=== PATIENT | female | born 1930 | race Caucasian/White ===

== ENCOUNTER 2017-06-22 11:11 | Outpatient (CLI) | payer MEDICARE | END 2017-06-22 11:12 | disposition home or self-care (01) | LOC: BICMAMMO 11:11 | PROVIDERS: ATTEND Internal Medicine | DX: Z12.31 Encounter for screening mammogram for malignant neoplasm of breast (principal) | CPT/HCPCS: 77063; 77067 ==

== ENCOUNTER 2017-07-11 15:48 | Emergency (ER) | payer MEDICARE, OTHER ==
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
--- NOTE | 2017-07-16 22:46 | EKG ---
Test Reason : Blood Pressure : / mmHG Vent. Rate : 084 BPM Atrial Rate : 084 BPM P-R Int : 174 ms QRS Dur : 076 ms QT Int : 368 ms P-R-T Axes : 045 -09 036 degrees QTc Int : 434 ms Normal sinus rhythm Nonspecific ST abnormality No STEMI Abnormal ECG Confirmed by KI YU, DEMETRIO ([id number]), editor department ROMA PENDLETON ([id number]) on 07/16/2017 10:46:23 PM Referred By: Confirmed By:DEMETRIO EMERSON MD
== END 2017-07-11 17:28 | disposition home or self-care (01) ==
LOC: ERS 15:48
DX: R07.89 Other chest pain (principal); I10 Essential (primary) hypertension; V43.52XA Car driver injured in collision with other type car in traffic accident, initial encounter
CPT/HCPCS: 71046; 93005

== ENCOUNTER 2017-08-18 08:26 | Day surgery (SDC) | payer MEDICARE ==
[2017-08-18] MEDS ORDERED: diphenhydrAMINE 25 MG CAP PO SCH (09:00)
[2017-08-18] MEDS ORDERED: Acetaminophen 500 MG TAB PO SCH (09:00)
[2017-08-18] MEDS ORDERED: Sodium Chloride 0.9% 30 ML ONE (09:03)
[2017-08-18 12:48] LABS: Hemoglobin 8.5 g/dL (12.0-16.0)
[2017-08-18 15:43] VITALS: BP 166/78; TEMP 98
== END 2017-08-18 16:14 | disposition home or self-care (01) ==
LOC: ONC/OP 08:26
PROVIDERS: ATTEND Internal Medicine Medical Oncology
PROC: 30233N1 Transfusion of Nonautologous Red Blood Cells into Peripheral Vein, Percutaneous Approach (ICD-10-PCS; principal; 2017-08-18)
DX: D64.9 Anemia, unspecified (principal); I10 Essential (primary) hypertension
CPT/HCPCS: 36430; 85014; 85018; 86850; 86900; 86901; A4216; P9016

== ENCOUNTER 2017-12-03 21:22 | Observation (INO) | payer MEDICARE ==
[2017-12-03 22:50] LABS: Band 5 % (5-11); Eosinophils 3 % (0-10); Hemoglobin 8.7 g/dL (12.0-16.0); Lymphocytes 8 % (21-51); MDiff Complete? YES; Macrocytosis MODERATE=16-30 cells (100X) (0-5/hpf); Mean Corpuscular HGB CONC 34.3 g/dL (32.0-36.0); Mean Corpuscular Hemoglobin 43.6 pg (27.0-31.0); Mean Platelet Volume 9.2 fL (7.4-10.4); Monocytes 4 % (0-10); Neutrophil 80 % (42-75); PLT Morphology Comment Appears Increased; Platelet Count 422 thou/uL (130-400); RBC Distribution Width 16.2 % (11.5-14.5); Red Blood Cell (RBC) Count 2.01 mill/uL (4.20-5.40); White Blood Cell (WBC) Count 9.7 thou/uL (4.8-10.8)
--- NOTE | 2017-12-03 22:50 | RAD ---
PORTABLE AP CHEST X-RAY 12/03/17 HISTORY: Chest pain. Burning and tightness. COMPARISON: 07/11/17. FINDINGS: The cardiac silhouette is magnified by projection but does appear enlarged. Atherosclerotic vascular calcifications are seen in an ectatic thoracic aorta. Pulmonary vasculature is within normal limits. There is increased density seen at the left lung base, but this is obscured by enlarged cardiac silho uette. Atelectasis or infiltrate at the left lung base cannot be excluded. Lungs are otherwise clear. There is osteopenia. No other interval change. IMPRESSION: Increased density left lung base in a retrocardiac location. This could be related to atelectasis renay luis enrique pneumonia. Followup to resolution is recommended. POS: [facility]
[2017-12-03 22:55] LABS: ALT (SGPT) 14 U/L (8-55); AST (SGOT) 27 U/L (5-34); Alkaline Phosphatase 76 U/L (40-150); Anion Gap 14 mmol/L (10-20); BUN (Urea Nitrogen) 12 mg/dL (9.8-20.1); Bilirubin, Total 0.4 mg/dL (0.2-1.2); Calc. Creatinine Clearance 0 mL/min (70-130); Calcium 9.1 mg/dL (7.8-10.44); Carbon Dioxide 23 mmol/L (23-31); Chloride 101 mmol/L (98-107); Estimated GFR-MDRD 77; Globulin 3.1 g/dL (2.4-3.5); Glucose 137 mg/dL (83-110); Potassium 4.4 mmol/L (3.5-5.1); Protein, Total 7.1 g/dL (6.0-8.3); Sodium 134 mmol/L (136-145)
[2017-12-03 22:58] LABS: CKMB 1.1 ng/mL (0-6.6); Troponin I Less than 0.010 ng/mL (< 0.028)
[2017-12-04 02:07] LABS: Troponin I Less than 0.010 ng/mL (< 0.028)
[2017-12-04 02:33] VITALS: BMI 21.2
[2017-12-04] MEDS ORDERED: Acetaminophen 650 MG Suppository PR PRN (03:17)
[2017-12-04] MEDS ORDERED: Acetaminophen 325 MG TAB PO PRN (03:17)
[2017-12-04] MEDS ORDERED: Ondansetron HCl/PF 4 MG/2 ML Vial IVP PRN (03:17)
[2017-12-04] MEDS ORDERED: Ondansetron ODT 4 MG TAB PO PRN (03:17)
[2017-12-04 04:47] LABS: Cardiac Risk 2.2 (Less than 4.5)
[2017-12-04] MEDS ORDERED: Levothyroxine Sodium 88 MCG TAB PO SCH (06:00)
--- NOTE | 2017-12-04 07:38 | HP ---
DATE OF ADMISSION: 12/04/2017 TIME OF SERVICE: 0315. PRIMARY CARE PHYSICIAN: Terrance Justice M.D. PRIMARY EXCELSIOR MACHINE FEEDER: Dr. Escalera. CHIEF COMPLAINT: Shortness of breath and chest discomfort. HISTORY OF PRESENT ILLNESS: Ms. Moctezuma is an 86-year-old white female with history of hypertension, essential thrombocytosis, chronic iron deficiency anemia on erythropoietin replacement, hypothyroidi sm and past history of colorectal cancer who presents to the emergency department for what she descri bes as shortness of breath. She states she was sitting and watching TV last evening and felt like she was having to continually t daisy deep breaths to breath properly. She states she did have a little bit of chest tightness associa bryan with that and that resolved fairly quickly. She has started indigestion about one night before a nd continued to have discomfort all day today. She does have a history of some kind of heart problem 9 years ago, but subsequently has not had any p roblems since then. As far as her anemia, she does take iron daily and see Dr. Escalera for erythropoietin injections sekou nova and has been taking those without any difficulty. PAST MEDICAL HISTORY: 1. Hypertension. 2. Essential thrombocytosis 3. Hypothyroidism. 4. Iron deficiency anemia. 5. Chronic anemia. 6. Colorectal cancer. PAST SURGICAL HISTORY: 1. Colorectal cancer resection 23 years ago. 2. Left total hip arthroplasty 9 years ago for hip fracture. HOME MEDICATIONS: 1. Ramipril 10 mg p.o. daily. 2. Multivitamin daily. 3. Levothyroxine 88 mcg daily. 4. Elemental iron 80 mg daily. 5. Vitamin D3 1000 units daily. 6. Aspirin enteric coated 81 mg daily. 7. Erythropoietin injections weekly in Dr. Escalera's office. 8. Anagrelide 0.5 mg capsules 2 p.o. b.i.d. ALLERGIES: To LEVOFLOXACIN and PREDNISONE. She had allergic reaction when taking both and not sure which one really caused it. FAMILY HISTORY: Negative for clotting or bleeding disorder. No immune dysfunction. SOCIAL HISTORY: Significant for one daily drink of red wine. She does takes in a normal size of gla ss and has 2-3 swallows of it. No other alcohol or drug use and no history of tobacco. REVIEW OF SYSTEMS: A 12-point review of systems was performed and is negative for all systems except as stated as per HPI. PHYSICAL EXAMINATION: VITAL SIGNS: Temperature 98.4, pulse 81, blood pressure 121/71, respiratory rate 14, satting 98% on room air. GENERAL: She is awake. She is alert. She is oriented x3. She is a well-developed, well-nourished, elderly white female who appears younger than her stated age of 86. HEENT: Head is normocephalic, atraumatic. Pupils are equal, round, react to light bilaterally. Muc ous membranes are moist. She has no visible lesions. No thrush. NECK: Supple. She had no lymphadenopathy, JVD, or thyromegaly with normal carotid upstroke. I do n ot appreciate bruits. LUNGS: Clear. She has no wheezes, no rales, no rhonchi with good air movement. Symmetrical chest e xcursion. There are no crackles heard. CARDIOVASCULAR: She has a normal rate and regular rhythm. Normal S1 and S2. No S3 or S4. I do not hear any murmurs. ABDOMEN: Soft, nontender, nondistended, no masses or organomegaly. EXTREMITIES: Show no cyanosis or clubbing. She has no edema. SKIN: Warm, moist, and well perfused without rashes or lesions. She has a capillary refill less paul n 2 seconds. MUSCULOSKELETAL: Normal to inspection. Large joints appear normal. There is no evidence of inflamm ation. No palpable effusions. NEUROLOGIC: Cranial nerves II through XII are grossly intact. She has 5/5 strength in all of four e xtremities. She has no focal neurologic deficits and normal speech pattern. LABORATORY DATA: Sodium 134, potassium 4.4, chloride 101, bicarbonate 23, BUN 12, creatinine 0.72, g lucose of 131 and calcium of 9.1. Liver function within normal limits. CBC showed a white count of 9.7, hemoglobin is 8.7, hematocrit of 25.5, platelet count is 422. MCV is elevated at 127, which is stable. White blood cell count did reveal 80% granulocytes, 5% bands, and 8% lymphocytes. BNP was n ormal at 76.7. CK-MB normal at 1.1. Troponin I has been less than 0.010 x2. X-RAY FINDINGS: Chest x-ray showed a left lung base retrocardiac increased density consistent with a telectasis or pneumonia. ASSESSMENT AND PLAN: 1. Dyspnea: She feels like this may have been a panic attack. We will get serial cardiac biomarker s. We will repeat a 2-view chest x-ray in the morning to get a better look. It has been 9 years sin ce last stress test. We will set her up for a nuclear stress test if her third set is negative. 2. Essential hypertension. We will continue home medications. 3. History of essential thrombocytosis on anagrelide. We will continue. 4. History of hypothyroidism on levothyroxine replacement. We will continue. 5. History of chronic anemia, iron deficient, macrocytic and hyperchromic. We will continue her iro n and her weekly erythropoietin. 6. History of colorectal cancer, status post resection in remission. No recurrence. Place the patient in observation.
[2017-12-04] MEDS ORDERED: Ramipril 5 MG CAP PO SCH (09:00)
[2017-12-04] MEDS ORDERED: Famotidine 20 MG TAB PO SCH (09:00)
[2017-12-04] MEDS ORDERED: Anagrelide HCl 0.5 MG CAP PO SCH (09:00)
[2017-12-04] MEDS ORDERED: Aspirin 325 MG TAB PO SCH (09:00)
[2017-12-04] MEDS ORDERED: Enoxaparin Sodium 40 MG/0.4 ML SYRINGE SC SCH (09:00)
[2017-12-04] MEDS ORDERED: Metoprolol Tartrate 25 MG TAB PO SCH (09:00)
[2017-12-04] MEDS ORDERED: Lorazepam 2 MG/ML VIAL SLOW IVP SCH (09:45)
[2017-12-04] MEDS ORDERED: ADENOSINE 60 MG/20 ML VIAL ONE (10:44)
[2017-12-04 14:01] LABS: CKMB 0.9 ng/mL (0-6.6); Troponin I Less than 0.010 ng/mL (< 0.028)
--- NOTE | 2017-12-04 14:38 | NM ---
CARDIAC SPECT: HISTORY: An 86-year-old female with chest pain, hypertension, and dyspnea. TECHNIQUE: A myocardial perfusion scan was performed using the single-isotope 1-day protocol with Technetium 99m sestamibi. Eleven mCi were injected intravenously for the rest exam followed by 28 mCi for the stre ss study. Pharmacologic stress with adenosine is monitored and interpreted by Dr. Shannon. FINDINGS: Homogeneous tracer distribution is seen in the myocardial segments on stress and rest images without fixed or reversible defects. GATED SPECT LVEF: 72%. WALL MOTION EXAM: Normal. IMPRESSION: Normal myocardial perfusion scan. POS: [facility]
[2017-12-04 15:34] VITALS: BP 158/76; TEMP 98.5
--- NOTE | 2017-12-04 21:20 | DIS ---
DATE OF ADMISSION: 12/04/2017 DATE OF DISCHARGE: 12/04/2017 DISCHARGE DIAGNOSES: 1. Dyspnea, likely due to emotional distress, resolving. 2. Chest pain, non-cardiac. 3. Hypertension, stable. 4. Essential thrombocytosis, stable. 5. Hypothyroidism, stable. 6. Chronic macrocytic anemia with iron deficiency component, stable. CONSULTATIONS: None. PERTINENT LABORATORY AND X-RAY FINDINGS: Basic metabolic profile within normal limits. LFTs within normal limits. Troponin I negative x3. Magnesium 2, total cholesterol 121, triglycerides 50, HDL 56 , LDL 55. CBC showed a white blood cell count of 9.7, hemoglobin 9, hematocrit 26, MCV 127, platelet count 422. Portable chest x-ray dated 12/03/2017 showed question of atelectasis in the left lung ba se. Cardiolite stress test dated 12/04/2017 showed no evidence for reversible or fixed ischemia with calculated ejection fraction of 72%. HOSPITAL COURSE: The patient was observed on the telemetry unit after initially presenting with shor tness of breath and chest pain. The patient underwent general cardiac workup including cardiac bioma rkers, which were negative x3. The patient proceeded with Cardiolite stress testing showing no evide nce of reversible or fixed ischemia with calculated ejection fraction of 72%. Telemetry monitoring s howed a sinus mechanism without evidence of acute arrhythmia or dysrhythmia. Screening metabolic irma vey is essentially unremarkable with stable chronic anemia noted. Vital signs remained stable throug hout the hospital course. I have examined the patient at the time of discharge and discussed followu p instructions, at which point, the patient verbalizes understanding and agreement. The patient is o verall clinically stable and ready for discharge on 12/04/2017. DISCHARGE MEDICATIONS: 1. Amlodipine 1.25 mg p.o. daily. 2. Anagrelide 0.5 mg 2 tablets p.o. b.i.d. 3. Enteric-coated aspirin 81 mg p.o. daily. 4. Vitamin D3, 1000 units p.o. daily. 5. Iron 18 mg p.o. daily. 6. Levothyroxine 88 mcg p.o. daily. 7. Multivitamin 1 tab p.o. daily. 8. Ramipril 10 mg p.o. daily. FOLLOWUP: The patient is to follow up with her primary care provider, Dr. Terrance Justice, within 7 days of discharge. CONDITION ON DISCHARGE: Stable. ACTIVITY: Ad marni. DIET: Regular. CODE STATUS: FULL. DISPOSITION: Home, 12/04/2017.
--- NOTE | 2017-12-07 13:33 | EKG ---
Test Reason : Blood Pressure : / mmHG Vent. Rate : 092 BPM Atrial Rate : 092 BPM P-R Int : 174 ms QRS Dur : 074 ms QT Int : 344 ms P-R-T Axes : 049 -06 041 degrees QTc Int : 425 ms Normal sinus rhythm Nonspecific ST and T wave abnormality Abnormal ECG Confirmed by KI YU, DEMETRIO ([id number]), newspaper editor ROMA PENDLETON ([id number]) on 12/07/2017 1:32:48 PM Referred By: Confirmed By:DEMETRIO EMERSON MD
== END 2017-12-04 15:46 | disposition home or self-care (01) ==
LOC: ERS 21:22 → 2SW 12-04 00:15
PROVIDERS: ADMIT Internal Medicine Infectious Disease; ATTEND Internal Medicine Infectious Disease
DX: R07.89 Other chest pain (principal); R06.02 Shortness of breath; I10 Essential (primary) hypertension; D47.3 Essential (hemorrhagic) thrombocythemia; D50.9 Iron deficiency anemia, unspecified; E03.9 Hypothyroidism, unspecified; Z85.038 Personal history of other malignant neoplasm of large intestine; Z79.82 Long term (current) use of aspirin; Z79.899 Other long term (current) drug therapy; Z88.1 Allergy status to other antibiotic agents; Z88.8 Allergy status to other drugs, medicaments and biological substances; Z90.49 Acquired absence of other specified parts of digestive tract
CPT/HCPCS: 71045; 78452; 80053; 80061; 82553 ×2; 83735; 83880; 84484 ×3; 85025; 93005; 93017; 96372; 96374; 99285; A9500; G0378 ×2; 36415; J0153; J1650; J2060

== ENCOUNTER 2018-01-21 10:46 | Emergency (ER) | payer MEDICARE ==
--- NOTE | 2018-01-21 12:38 | RAD ---
2 VIEW CHEST: Date: 01/21/18 INDICATION: Foreign body evaluation. Drainage, congestion, and difficulty swelling. FINDINGS: There is a stable cardiomediastinal silhouette. Tortuosity and ectasia of partially calcified thoraci c aorta is again seen. No new consolidation or effusion. No significant interval change otherwise dem onstrated. IMPRESSION: Stable chest. POS: [facility]
== END 2018-01-21 12:27 | disposition home or self-care (01) ==
LOC: ERS 10:46
DX: T17.208A Unspecified foreign body in pharynx causing other injury, initial encounter (principal); R13.10 Dysphagia, unspecified; D64.9 Anemia, unspecified; E03.9 Hypothyroidism, unspecified; K21.9 Gastro-esophageal reflux disease without esophagitis; I10 Essential (primary) hypertension; Z79.899 Other long term (current) drug therapy; Z79.82 Long term (current) use of aspirin
CPT/HCPCS: 71046

== ENCOUNTER 2018-01-31 07:11 | Inpatient (IN) | payer MEDICARE ==
[2018-01-31 08:04] LABS: INR-International Normal Ratio 1.2; PTT 29.4 SEC (22.9-36.1)
[2018-01-31 08:11] LABS: Hemoglobin 8.2 g/dL (12.0-16.0); Mean Corpuscular HGB CONC 33.2 g/dL (32.0-36.0); Mean Corpuscular Hemoglobin 41.8 pg (27.0-31.0); Mean Platelet Volume 8.2 fL (7.4-10.4); Platelet Count 896 thou/uL (130-400); RBC Distribution Width 15.7 % (11.5-14.5); Red Blood Cell (RBC) Count 1.95 mill/uL (4.20-5.40); White Blood Cell (WBC) Count 4.7 thou/uL (4.8-10.8)
[2018-01-31 08:16] LABS: ALT (SGPT) 16 U/L (8-55); AST (SGOT) 29 U/L (5-34); Alkaline Phosphatase 64 U/L (40-150); Anion Gap 14 mmol/L (10-20); BUN (Urea Nitrogen) 8 mg/dL (9.8-20.1); Bilirubin, Total 0.4 mg/dL (0.2-1.2); Calc. Creatinine Clearance 0 mL/min (70-130); Calcium 9.1 mg/dL (7.8-10.44); Carbon Dioxide 25 mmol/L (23-31); Chloride 93 mmol/L (98-107); Estimated GFR-MDRD 80; Globulin 2.8 g/dL (2.4-3.5); Glucose 141 mg/dL (83-110); Potassium 4.5 mmol/L (3.5-5.1); Protein, Total 6.8 g/dL (6.0-8.3); Sodium 127 mmol/L (136-145)
[2018-01-31 08:20] LABS: CKMB 6.5 ng/mL (0-6.6)
[2018-01-31 08:31] LABS: Troponin I 0.409 ng/mL (< 0.028)
[2018-01-31 08:51] LABS: Band 4 % (5-11); Eosinophils 18 % (0-10); Lymphocytes 13 % (21-51); MDiff Complete? YES; Macrocytosis MODERATE=16-30 cells (100X) (0-5/hpf); Monocytes 3 % (0-10); Neutrophil 62 % (42-75); PLT Morphology Comment Appears Increased
[2018-01-31] MEDS ORDERED: ALPRAZolam 0.25 MG TAB ONE (09:08)
[2018-01-31] MEDS ORDERED: ISOVUE-370 76%-LOCM 1 ML ONE (11:07)
--- NOTE | 2018-01-31 11:49 | CT ---
CT ABDOMEN AND PELVIS WITH IV AND ORAL CONTRAST: Date: 01/31/18 HISTORY: Abdomen pain. Rectal bleeding. COMPARISON: 06/25/11. FINDINGS: Mild atelectasis and scarring at the lung bases. Multiple cysts arise from the cortex of each kidney, some enlarging slightly since the prior exam. Liver, spleen, adrenal glands, and pancreas are unrema rkable. There is calcification throughout the arterial structures. Urinary bladder partially obscured by beam-hardening artifact from left hip prosthesis. Diverticula arise from the sigmoid colon without adjacent inflammation. IMPRESSION: 1. Diverticulosis. No evidence of diverticulitis. 2. Atherosclerosis. 3. Chronic-type findings are stable. POS: [facility]
[2018-01-31 12:00] LABS: Critical Call Chem Troponin I RESULT DECREASING; Troponin I 0.369 ng/mL (< 0.028)
[2018-01-31] MEDS ORDERED: Calcium Carbonate 500 MG ChewTAB PO PRN (12:27)
[2018-01-31] MEDS ORDERED: Bisacodyl 5 MG TAB PO PRN (12:27)
[2018-01-31] MEDS ORDERED: Nitroglycerin 0.4 MG TAB (25 Tab Bottle) SL PRN (12:27)
[2018-01-31] MEDS ORDERED: Acetaminophen 325 MG TAB PO PRN (12:27)
[2018-01-31] MEDS ORDERED: Benzonatate 100 MG CAP PO PRN (12:27)
[2018-01-31] MEDS ORDERED: Ondansetron PF 4 MG/2 ML Vial IVP PRN (12:27)
[2018-01-31] MEDS ORDERED: cloNIDine 0.1 MG TAB PO PRN (12:27)
[2018-01-31] MEDS ORDERED: hydrALAZINE 20 MG/ML VIAL SLOW IVP PRN (12:27)
[2018-01-31] MEDS ORDERED: Senokot S 8.6-50 MG TAB PO PRN (12:27)
[2018-01-31] MEDS ORDERED: Sodium Chloride 0.65% Nasal 44 ML BOT EA NARE PRN (12:27)
[2018-01-31] MEDS ORDERED: Diabetic Tussin 200 MG/10 ML UDCUP PO PRN (12:27)
[2018-01-31] MEDS ORDERED: Sodium Chloride 0.9% 1,000 ML IV SCH (12:30)
[2018-01-31] MEDS ORDERED: Pantoprazole 40 MG VIAL IVP SCH ×2 (12:49→13:30)
[2018-01-31 13:06] VITALS: BMI 19.2
[2018-01-31] MEDS ORDERED: Prevnar 13-Val Conj/PF 0.5 ML SYRINGE IM ONE (13:45)
[2018-01-31 14:12] LABS: Hemoglobin 8.1 g/dL (12.0-16.0)
[2018-01-31] MEDS: Sodium Chloride 0.9% 1,000 ML IV SCH (14:12)
--- NOTE | 2018-01-31 14:21 | HP ---
PRIMARY CARE PHYSICIAN: Dr. Terrance Justice CHIEF COMPLAINT: Bright red blood per rectum. HISTORY OF PRESENT ILLNESS: Ms. Moctezuma is a pleasant 87-year-old female with history of colorectal cancer, status post surgery, chemotherapy and radiation 23 years ago with recent diagnosis of myelody splasia under the care of Dr. Escalera, who presented to the emergency room with above-mentioned comp laint. History is mainly obtained by the patient herself, but largely also supplemented by her daugh ter present in the room. Ms. Dumont. Ms. Dumont is also her medical power of trust and estates attorney. The patient has seen Dr. Jo in the past and has had screening colonoscopies done. She does not sonny lly remember when was the last time she had one. She was admitted to our facility in 11/2017 for chest discomfort where a nuclear medicine stress denis t was done which was unremarkable. She was also recently noticed to have difficulty with her speech, which was slurred and difficulty sw allowing the food and excessive weakness starting all of a sudden 2 weeks ago. They sought care with the primary care physician. An MRI and carotid Doppler ultrasound was done which were both unremark able. She was diagnosed with having a TIA and was started on Plavix 2 weeks ago. She also was seen by speech therapist underwent a barium swallow which showed aspiration. She was supposed to follow u p with the speech therapy as an outpatient today. Also, she was started on high dose aspirin by Dr. Escalera 2 weeks ago after this episode of TIA. Keshav gallegos was also diagnosed with myelodysplasia earlier this year which she hid from her children and they d id not know up until recently. She was started on some new medications by Dr. Escalera including one of them being hydroxyurea. She came to the ER because last night she had while sitting on the toilet a big bloody bowel movement . It has not happened since. She has no previous episodes. She denies any abdominal pain, constipa tion or diarrhea recently. She denies any bloody emesis or coffee ground emesis. Upon presentation to the emergency room, she was hemodynamically stable with a blood pressure 135/87 with a pulse of 99. Her hemoglobin at baseline is in the 8s and this morning is 8.2. Her platelet count is 896, with a h istory of essential thrombocytosis. She was also found to have elevation of cardiac enzymes with a t roponin of 0.409 with normal CK-MB. Her sodium was low at 127. She is now being admitted for [facility] workup of gastrointestinal bleed, likely lower. The patient also reports poor appetite and a weigh t loss of 10 pounds in the last 2 weeks due to poor oral intake. She denies any sick contacts. She denies any chest pain, but she has been having some on and off ebenezer rtness of breath for the last few days, especially last 2 weeks, when she has suddenly gone downhill according to the daughter. Prior to that, she was very active and is able to take care of herself. PAST MEDICAL HISTORY: 1. Recent diagnosis of myelodysplasia. 2. History of chronic anemia on Procrit shots by Dr. Escalera. 3. Hypertension. 4. Recent diagnosis of TIA, on aspirin and Plavix for the last 2 weeks. 5. History of hypothyroidism. 6. History of colorectal cancer, status post surgery, chemotherapy and radiation. PAST SURGICAL HISTORY: 1. Colorectal cancer resection 23 years ago. 2. Left total hip arthroplasty 9 years ago for hip fracture. ALLERGIES: LEVOFLOXACIN and PREDNISONE. FAMILY HISTORY: No history of bleeding or clotting disorder. No history of immune dysfunction. No premature coronary artery disease. SOCIAL HISTORY: She lives in assisted living facility. She has no history of drug, tobacco or alcoh ol abuse. HOME MEDICATIONS: Plavix 75 mg daily, aspirin 325 mg daily, anagrelide 1.5 mg daily, Alprazolam 0.25 mg p.o. b.i.d. p.r.n. for the last 2 weeks, Ambien 5 mg daily, vitamin B6 100 mg daily, vitamin B 10 0 mg daily, Cozaar 25 mg daily, Hydroxyurea 500 mg daily, multivitamin daily, levothyroxine 88 mcg da liu, amlodipine 1.25 mg p.o. daily. REVIEW OF SYSTEMS: A 10-point review of systems done and is negative except for those mentioned in t he history and physical. CODE STATUS: Discussed with the patient and daughter who is also the medical power of trust and estates attorney. The patient has advanced directive in the form of do not resuscitate and intubate. This was confirmed. LABORATORY EXAMINATION: Her CBC shows hemoglobin of 8.2 with a baseline hemoglobin around 8.5 at [facility] this year. Her WBC count is 4.7, platelet count of 896. She has 4% bands and lymphocytes are low at 13%. PT, PTT, INR unremarkable. Serum chemistry shows sodium of 127, chloride 93, blood sugar 1 41. Initial troponin 0.409 with repeat troponin of 0.369. CT scan of the abdomen and pelvis is done in the emergency room and it showed diverticulosis without evidence of diverticulitis and chronic findings. This was done with IV and oral contrast. PHYSICAL EXAMINATION: VITAL SIGNS: Most recent vital signs; temperature 97.5, pulse of 85, respirations 16, saturating 97% on room air, blood pressure 135/78. GENERAL: She appears pale, weak and cachectic, but in no acute distress. She does have slurred spee ch and somewhat sleepy. HEENT: Mucous membrane is dry. No oropharyngeal exudate or erythema. Head is normocephalic, atraum atic. Pupils equal, reactive to light and accommodation. Extraocular movement intact. NECK: Supple without any lymphadenopathy, JVD or bruit. CHEST: Clear to auscultation without any wheezing, rales or rhonchi. CARDIOVASCULAR: Rhythm is regular without any murmur, rubs or gallops. ABDOMEN: Soft, nontender, nondistended, positive bowel sounds. EXTREMITIES: Free of any cyanosis, clubbing, or edema. NEUROLOGIC: Nonfocal. SKIN: Free of any rashes or bruises. Feels warm and dry to touch. PSYCHIATRIC: Normal affect. IMPRESSION AND PLAN: 1. Hematochezia, likely lower gastrointestinal bleed. At this time, upper GI bleed can also not be ruled out as the patient is on high dose aspirin and Plavix which both are new medications for her ov er the last 2 weeks. She will be started on b.i.d. IV Protonix and we will check her H&H every 6 mariano rs. We will have her seen by psychology department chair, Dr. Benito is concrete truck driver for Dr. Jo today. She will be n.p.o. for now. She might require EGD and colonoscopy, especially given her recent complaints of dysphagia and evidence of aspiration. She is currently hemodynamically stable. We will start her o n gentle IV fluid hydration as well. We will hold aspirin and Plavix for now. 2. Elevated cardiac enzymes/non ST elevation myocardial infarction. The enzymes have started to jason nd down. She had a negative stress test 2 months ago. Most likely this is from demand ischemia from a GI bleed. We will continue to trend serial cardiac enzymes and perform a transthoracic echocardio gram. Hold aspirin and Plavix given the GI bleed. Acute on chronic anemia, likely acute blood loss a nemia. H&H will be followed serially. We will transfuse her if she is symptomatic or if her hemoglo bin drops below 7. 3. Hyponatremia, likely secondary to extremely poor p.o. intake. We will start her on normal saline and for follow the sodium levels along. The patient is exhibiting some somnolence at this time, whi ch may or may not be attributable to hyponatremia. We will recheck her BMP with next blood draw. 4. Myelodysplasia. We will hold her oral medications as she is n.p.o. for now. I will get her kraig rds from Dr. Escalera's office as well. 5. History of colorectal cancer, status post surgery, chemotherapy and radiation. The patient has b een having screening and followup colonoscopies as an outpatient. She might require one while in mariano se. Given the new gastrointestinal bleed. 6. CODE STATUS: Do not resuscitate or intubate discussed with the patient and her family. 7. History of hypertension, currently controlled. We will add p.r.n. IV antihypertensives as she is n.p.o. and restart home medications as tolerated. 8. Hypothyroidism. We will restart her Synthroid. 9. Deep venous thrombosis and gastrointestinal prophylaxes with sequential compression devices and p roton pump inhibitor. Avoid pharmacological deep venous thrombosis prophylaxis for GI bleed. DISPOSITION: Ms. Moctezuma is currently being admitted to the hospital with a gastrointestinal bleed, likely lower as well as non-ST elevation myocardial infarction due to demand ischemia. She is curren tly being admitted to medical floor as she is hemodynamically stable and a do not resuscitate, do not intubate patient. Further management will depend upon her clinical course. Estimated length of sta y at least 2-3 midnights. If she deteriorates she will be transferred to telemetry unit.
[2018-01-31 14:39] LABS: Troponin I 0.402 ng/mL (< 0.028)
[2018-01-31 18:40] LABS: Hemoglobin 7.4 g/dL (12.0-16.0)
[2018-01-31 18:53] LABS: Anion Gap 13 mmol/L (10-20); BUN (Urea Nitrogen) 8 mg/dL (9.8-20.1); Calc. Creatinine Clearance 43 mL/min (70-130); Calcium 8.7 mg/dL (7.8-10.44); Carbon Dioxide 26 mmol/L (23-31); Chloride 96 mmol/L (98-107); Estimated GFR-MDRD 85; Glucose 132 mg/dL (83-110); Potassium 4.4 mmol/L (3.5-5.1); Sodium 131 mmol/L (136-145)
[2018-01-31 19:00] LABS: Critical Call Chem Troponin I RESULT DECREASING; Troponin I 0.315 ng/mL (< 0.028)
[2018-01-31] MEDS: ALPRAZolam 0.25 MG TAB PO PRN (19:45)
[2018-01-31] MEDS: Pantoprazole 40 MG VIAL IVP SCH (22:19)
--- NOTE | 2018-01-31 22:22 | CON ---
DATE OF CONSULTATION: 01/31/2018 REASON FOR CONSULTATION: MDS with thrombocytosis. HISTORY OF PRESENT ILLNESS: An 87-year-old female with history of colorectal cancer status post chemotherapy and surgery and radiation 23 years ago with recent diagnosis of MDS 5Q deletion under the care of Dr. Escalera who presented to the ER with bright red blood per rectum. The patient states she was fine over the weekend until this morning when she noticed bright red blood per rectum and came to the hospital. She states that since coming to the hospital, she has had 4-5 more episodes of bright red blood per rectum and the last couple she was passing clots without any stool. She denies any abdominal pain, any nausea, vomiting, diarrhea or constipation. She does complain of worsening fatigue recently, but no lightheadedness, dizziness, shortness of breath or palpitations. The patient did present to the ER recently for difficulty with speech and had an MRI of the brain and carotid Dopplers that were both negative. It was thought the patient may have had a TIA and she was started on Plavix at this time. After this, her platelet counts were found to be 976 and she was started on hydroxyurea by Dr. Escalera taking 1500 mg and also takes anagrelide and aspirin 325 mg. The patient has only been on hydroxyurea since 01/26/2018. Her platelets on admission were 1064. REVIEW OF SYSTEMS: Ten point review of systems negative except as per HPI. PAST MEDICAL HISTORY: MDS with 5-Q deletion, chronic anemia with thrombocytosis , hypertension, TIA, hypothyroidism, colorectal cancer status post surgery, chemotherapy and radiation. PAST SURGICAL HISTORY: Colorectal cancer resection 23 years ago and left total hip replacement 9 years ago. ALLERGIES: LEVAQUIN and PREDNISONE. FAMILY HISTORY: No history of bleeding or clotting disorder. SOCIAL HISTORY: Lives in assisted living. Has no history of drug, tobacco or alcohol abuse. CURRENT MEDICATIONS: Reviewed. PHYSICAL EXAMINATION: VITAL SIGNS: Temperature 97.5, pulse 89, respirations 18, satting 97% on room air, blood pressure 138/83. GENERAL APPEARANCE: Patient is lying in bed in no acute distress, appears cachectic. HEENT: No scleral icterus. Pale conjunctivae. CARDIAC: Regular S1 and S2. Regular rhythm and rate, no murmurs, rubs or gallops. RESPIRATIONS: Clear to auscultation bilaterally without wheezes, rales or rhonchi. ABDOMEN: Soft, nondistended, nontender with positive bowel sounds. EXTREMITIES: No peripheral edema. NEUROLOGIC: Cranial nerves II-XII grossly intact and otherwise nonfocal. PSYCHIATRIC: Normal affect. Awake, alert and oriented x3. SKIN: No bruises or rashes. LABORATORY DATA: White blood cell is 4.7, hemoglobin 8.2 at 07:30 a.m. and 8.1 at 02:00 p.m., platelets 896, troponin peaked at 0.409, sodium 127, BUN 8, creatinine 0.69, albumin 4.0, total bilirubin 0.4. IMAGING DATA: CT abdomen and pelvis with contrast dated 01/31/2018 shows diverticulosis without evidence of diverticulitis and atherosclerosis, diverticula are present in the sigmoid colon. ASSESSMENT AND PLAN: An 87-year-old female with recent diagnosis of MDS 5-Q deletion presented to the hospital with bright red blood per rectum that started today. Patient has had 4-5 episodes since being admitted to the hospital, currently passing clots and hemoglobin is currently stable as are her vital signs. The patient has a platelet count of 896 and when platelets are this high, patient can develop an acquired von Willebrand syndrome that contributes to the bleeding. The patient was also recently on aspirin and Plavix, which can lead to impaired platelet function. The patient has been on anagrelide and recently started hydroxyurea in an attempt to improve her platelets. Would recommend continuing hydroxyurea and anagrelide in order to lower her platelet count and continuing to hold aspirin and Plavix during the acute bleed. We will check for possible acquired von Willebrand syndrome in this patient. Recommend continuing CBCs q6 hours and GI evaluation. We will continue to follow this patient with you. NICHOLAS
--- NOTE | 2018-01-31 22:25 | NM ---
NUCLEAR MEDICINE TAGGED RED BLOOD CELL SCAN: 01/31/18 HISTORY: Bright red blood per rectum gastrointestinal bleed. RADIOPHARMACEUTICAL: 27 millicuries technetium 99m tagged red blood cells, IV. VIEWS OBTAINED: Anterior. FINDINGS: There is a focus of increased uptake of radiotracer which appears to originate in the right lower jean pierre drant which conforms to bowel and increases as well as progresses over time. Activity appears to exte nd in an antegrade as well as in a retrograde fashion. The exact location of the GI bleed is difficul t to determinate based on this examination. IMPRESSION: 1. Gastrointestinal bleed with the origin appearing to be within the region of the left lower qu adrant/pelvis. However, the exact site of bleeding is difficult to definitely delineate on this exam. 2. Above findings discussed with Dr. Benito on 01/31/18 at 2208 hours. POS: [facility]
--- NOTE | 2018-02-01 02:45 | CON ---
DATE OF CONSULTATION: 01/31/2018 REASON FOR CONSULTATION: GI bleeding. HISTORY OF PRESENT ILLNESS: There has been a 6-hour delay in the consult, as I was not called by my office about the consult, so I just showed up on the consult list late this evening. There are some notations in the chart that the Hospitalist talked to Dr. Jo that I was going to see the patient, t alked with Dr. Jo, he said that he was not available to see patients, so if we need a consult to ca ll our office, apparently that was not done. In any event Ms. Moctezuma is an 87-year-old female who h as a remote history of rectal cancer 32 years ago, which she saw Dr. Jo. She last had a colonoscop y with him in 2008 with diverticulosis. She has had a little bit of on and off bleeding in the past, the last time being 2010, which was attributed to diverticulosis. She presented today noting that s he had rectal bleeding beginning early this morning. This was painless with bright red blood per rec zachary and occasional some clots. She has passed blood about 6-7 times. Her daughter thinks she is get ting worse and not better. She does have signs of diverticulosis on a CAT scan. It is unclear why t hat was performed, but that was performed in the emergency room. The patient to me denies any abdomi nal pain. Apparently, she sees Dr. Escalera for myelodysplastic syndrome and more recently about 10 days ago had a TIA with disturbances in swallowing and speech and was started on a full dose aspirin and Plavix at that time. The admission note states that was about 2 weeks ago, she had a barium swal low with speech pathology at that time, which showed some aspiration. She was here for first Speech Pathology consult in outpatient today, but with the bleeding. She presented to the emergency room. PAST MEDICAL HISTORY: 1. Diagnosed with myelodysplastic syndrome. 2. Chronic anemia. 3. Hypertension. 4. Recent TIA, started on aspirin as well as Plavix about 2 weeks ago. 5. Oropharyngeal dysphagia noted by our Speech Pathology. 6. History of rectal cancer 32 years ago. PAST SURGICAL HISTORY: 1. Rectal surgery for cancer. 2. Total hip replacement. 3. Colonoscopy in 2010. ALLERGIES: PREDNISONE, and LEVOFLOXACIN. FAMILY HISTORY: Noncontributory. SOCIAL HISTORY: Lives in assisted living. She does not smoke, drink or use drugs. MEDICATIONS: Plavix 75, aspirin 325, anagrelide 1.5 mg daily, alprazolam 0.25 mg b.i.d., Ambien 5 mg daily, B6 of 100 mg daily, B1 of 100, Cozaar, hydroxyurea, multivitamin, levothyroxine 88 mcg daily, and amlodipine. REVIEW OF SYSTEMS: Negative for shortness breath or chest pain. She feels very weak at this time. Her daughter notes that she looks very pale to her. CT scan reviewed. LABORATORY STUDIES: Hemoglobin is 8.1 today at 1400, it was 8.2 at 7:30, it was 8.7 on 12/03/2017 an d it was 8.5 on 08/18/2017; white count is 8.7; platelet count is 896. INR is 1.2, BUN is 8, creatin ine is 0.5 at 7:30 this morning that has not been rechecked. Electrolytes normal except for sodium 1 27, comprehensive metabolic profile normal. Troponin 0.4. PHYSICAL EXAMINATION: GENERAL: The patient is resting comfortably in bed. She is going up to the bathroom. VITAL SIGNS: Temperature is 97, pulse 89, blood pressure 130/83. GENERAL: She is small, frail, and thin. She is pale. Her conjunctiva and sclerae are pale. She is alert and oriented to person, place and time. LUNGS: Clear. HEART: Regular rate and rhythm. ABDOMEN: Soft, nontender. RECTAL: Reveals some bright red blood per rectum with no clot, nothing in the vault at this time. ASSESSMENT: Lower gastrointestinal bleeding. This could be diverticular or hemorrhoidal. She is ve ry poor candidate for a colonoscopy at this point in time. She had a recent TIA about 2 weeks ago an d is having oropharyngeal dysphagia. Apparently, she had a modified barium swallow that showed trace aspiration in the outpatient setting and she does not really drink much in the way of liquids, just small sips. Because of the risks of severe pneumonia with aspiration of bowel prep material such as GoLYTELY or Suprep, she should be at very high risk at this point in time for complications of drinki ng one of those preps. RECOMMENDATIONS: 1. Transfuse unit of blood. 2. Keep n.p.o. 3. Two large bore IVs at all times. 4. Stat bleeding scan. 5. If there is a focus of active bleeding identified, would go ahead and proceed with endoscopy to t ry to localize and treat that. Otherwise, support with transfusion at this point in time, would hold Plavix and aspirin and start a PPI. PRESENT MEDICATIONS: Xanax, Tylenol, Norvasc, Tessalon, Dulcolax, Tums, Catapres, Apresoline, Synthr oid, Nitrostat, Zofran, Protonix 40 IV q.12 hours, normal saline, and thiamine.
[2018-02-01] MEDS: Sodium Chloride 0.9% 1,000 ML IV SCH ×3 (04:21→17:12)
[2018-02-01] MEDS: Levothyroxine Sodium 88 MCG TAB PO SCH (04:55)
[2018-02-01 05:04] LABS: Anion Gap 13 mmol/L (10-20); BUN (Urea Nitrogen) 10 mg/dL (9.8-20.1); Calc. Creatinine Clearance 47 mL/min (70-130); Calcium 8.4 mg/dL (7.8-10.44); Carbon Dioxide 23 mmol/L (23-31); Chloride 99 mmol/L (98-107); Estimated GFR-MDRD Greater than 90; Glucose 100 mg/dL (83-110); Potassium 4.9 mmol/L (3.5-5.1); Sodium 130 mmol/L (136-145)
[2018-02-01 05:42] LABS: Eosinophils 3 % (0-10); Hypochromia SLIGHT = 6-15 cells (100X) (0-5/hpf); Lymphocytes 13 % (21-51); MDiff Complete? YES; Macrocytosis MODERATE=16-30 cells (100X) (0-5/hpf); Mean Corpuscular HGB CONC 32.1 g/dL (32.0-36.0); Mean Corpuscular Hemoglobin 37.1 pg (27.0-31.0); Mean Platelet Volume 8.2 fL (7.4-10.4); Monocytes 6 % (0-10); Neutrophil 78 % (42-75); PLT Morphology Comment Appears Increased; Platelet Count 704 thou/uL (130-400); Polychromasia SLIGHT = 2-3 cells (100X) (0-2/hpf); RBC Distribution Width 23.4 % (11.5-14.5); Red Blood Cell (RBC) Count 2.15 mill/uL (4.20-5.40); White Blood Cell (WBC) Count 5.1 thou/uL (4.8-10.8)
[2018-02-01] MEDS ORDERED: Non-Formulary Item 1 EACH (Thiamine Hcl [Vitamin B-1] 100 MG) PO SCH (09:00)
[2018-02-01] MEDS: Fleet Enema 133 ML BOT FS SCH ×2 (09:37→11:01)
[2018-02-01] MEDS: Amlodipine 5 MG TAB PO SCH (09:39)
[2018-02-01] MEDS: Pantoprazole 40 MG VIAL IVP SCH ×2 (09:39→21:15)
--- NOTE | 2018-02-01 13:55 | PDOC.PN ---
- Subjective Encounter Start Date: 02/01/18 Encounter Start Time: 13:54 Subjective: feels a little bit better. -: 3-4 more episodes of bloody BM since last night.no abd pain/N/V -: feels weak - Objective Resuscitation Status: Resuscitation Status DNR:Do Not Resuscitate MAR Reviewed: Yes Vital Signs & Weight: Vital Signs (12 hours) Temp Pulse Pulse Resp BP BP Pulse Ox 02/01/18 13:28 97.6 F 91 16 136/80 98 02/01/18 12:52 97.5 F L 92 16 132/80 96 02/01/18 10:01 102 H 152/82 H 02/01/18 09:39 95 02/01/18 08:04 97.6 F 95 18 124/74 97 02/01/18 08:00 95 02/01/18 05:00 98 F 95 18 125/79 95 Pulse Ox 02/01/18 13:28 02/01/18 12:52 02/01/18 10:01 99 02/01/18 09:39 02/01/18 08:04 02/01/18 08:00 02/01/18 05:00 Weight Weight 101 lb 14.4 oz I&O: 01/31/18 02/01/18 02/02/18 06:59 06:59 06:59 Intake Total 1500 Balance 1500 Result Diagrams: 02/01/18 03:54 02/01/18 03:54 Additional Labs: Laboratory Tests 01/31/18 01/31/18 01/31/18 07:30 07:30 11:09 Plt Count 896 H Troponin I 0.409 H* 0.369 H* 01/31/18 01/31/18 02/01/18 14:00 18:25 03:54 Plt Count 704 H Troponin I 0.402 H* 0.315 H* Phys Exam - Physical Examination Constitutional: NAD HEENT: PERRLA, moist MMs, sclera anicteric, oral pharynx no lesions Neck: no nodes, no JVD, supple, full ROM Respiratory: no wheezing, no rales, no rhonchi, clear to auscultation bilateral Gastrointestinal: soft, non-tender, no distention, positive bowel sounds Musculoskeletal: no edema, pulses present Neurological: non-focal, normal sensation, moves all 4 limbs Psychiatric: normal affect, A&O x 3 Skin: no rash Dx/Plan (1) Lower GI bleed Code(s): K92.2 - GASTROINTESTINAL HEMORRHAGE, UNSPECIFIED Status: Acute (2) Generalized weakness Code(s): R53.1 - WEAKNESS Status: Acute (3) Hematochezia Code(s): K92.1 - MELENA Status: Acute (4) Recent cerebrovascular accident (CVA) Code(s): Z86.73 - PRSNL HX OF TIA (TIA), AND CEREB INFRC W/O RESID DEFICITS Status: Acute (5) Dysphagia Code(s): R13.10 - DYSPHAGIA, UNSPECIFIED Status: Acute Comment: MARKETING EFFECTIVENESS MANAGER consulted (6) MDS (myelodysplastic syndrome) Code(s): D46.9 - MYELODYSPLASTIC SYNDROME, UNSPECIFIED Status: Chronic Comment: on Anagrelide and Hydroxyurea - Plan DVT proph w/SCDs Colonoscopy today .RBC scan shows Left sided bleeding.H/h stable.recheck -: appreciate GI input -: Restart Hydroxyurea and anagrelide per Oncology recs. -: monitor platelets .vWB factore testing per oncology -: ASa & plavix on hold for GIB.cont PPI IV BID * .OT,PT.MARKETING EFFECTIVENESS MANAGER Review of Systems - Review of Systems Constitutional: weakness, malaise Respiratory: negative: Cough, Dry, Shortness of Breath, Hemoptysis, SOB with Excertion, Pleuritic Pain, Sputum, Wheezing Cardiovascular: negative: chest pain, palpitations, orthopnea, paroxysmal nocturnal dyspnea, edema, light headedness, other Gastrointestinal: negative: Nausea, Vomiting, Abdominal Pain, Diarrhea, Constipation, Melena, Hematochezia, Other Genitourinary: negative: Dysuria, Frequency, Incontinence, Hematuria, Retention , Other Musculoskeletal: negative: Neck Pain, Shoulder Pain, Arm Pain, Back Pain, Hand Pain, Leg Pain, Foot Pain, Other Skin: negative: Rash, Lesions, Elier, Bruising, Other Neurological: negative: Weakness, Numbness, Incoordination, Change in Speech, Confusion, Seizures, Other - Medications/Allergies Allergies/Adverse Reactions: Allergies Allergy/AdvReac Type Severity Reaction Status Date / Time levofloxacin [From Levaquin] Allergy Verified 01/31/18 12:53 prednisone Allergy Verified 01/31/18 12:53 Medications: Current Medications Acetaminophen (Tylenol) 650 mg PO Q4H PRN PRN Reason: Headache/Fever/Mild Pain (1-3) Alprazolam (Xanax) 0.25 mg PO BID PRN PRN Reason: Anxiety Last Admin: 01/31/18 19:45 Dose: 0.25 mg Amlodipine Besylate (Norvasc) 1.25 mg PO DAILY [facility] Last Admin: 02/01/18 09:39 Dose: Not Given Benzonatate (Tessalon) 100 mg PO Q6H PRN PRN Reason: Cough Bisacodyl (Dulcolax) 10 mg PO DAILYPRN PRN PRN Reason: Constipation Calcium Carbonate (Tums) 1,000 mg PO Q4H PRN PRN Reason: Heartburn or Indigestion Clonidine (Catapres) 0.1 mg PO Q4H PRN PRN Reason: SBP > _160___ Guaifenesin (Robitussin Sf) 200 mg PO Q4H PRN PRN Reason: Cough Hydralazine HCl (Apresoline) 10 mg SLOW IVP Q4H PRN PRN Reason: SBP > 180 and HR < 70 Sodium Chloride (Normal Saline 0.9%) 1,000 mls @ 75 mls/hr IV .[id number] [facility] Last Admin: 02/01/18 09:37 Dose: 1,000 mls Levothyroxine Sodium (Synthroid) 88 mcg PO 0600 [facility] Last Admin: 02/01/18 04:55 Dose: Not Given Nitroglycerin (Nitrostat) 0.4 mg SL Q5MIN PRN PRN Reason: Chest Pain Ondansetron HCl (Zofran) 4 mg IVP Q6H PRN PRN Reason: Nausea/Vomiting Pantoprazole Sodium (Protonix) 40 mg IVP Q12HR [facility] Last Admin: 02/01/18 09:39 Dose: 40 mg Senna/Docusate Sodium (Senokot S) 2 tab PO BID PRN PRN Reason: Constipation Sodium Chloride ([place] Nasal [place] 0.65%) 0 ml EA NARE QIDPRN PRN PRN Reason: Nasal Congestion Sodium Chloride (Flush - Normal Saline) 10 ml IVF Q12HR [facility] Last Admin: 02/01/18 09:39 Dose: 10 ml Sodium Chloride (Flush - Normal Saline) 10 ml IVF PRN PRN PRN Reason: Saline Flush Thiamine HCl (Thiamine) 100 mg PO DAILY [facility] Last Admin: 02/01/18 09:39 Dose: Not Given
[2018-02-01] MEDS ORDERED: PROPOFOL 200 MG/20 ML VIAL ONE (13:57)
[2018-02-01] MEDS ORDERED: PHENYLEPHRINE-NS 100 MCG/ML 10 ML SYRINGE ONE (13:57)
[2018-02-01] MEDS ORDERED: Lidocaine 1% PF 5 ML VIAL ONE (13:57)
[2018-02-01] MEDS ORDERED: Hydroxyurea 500 MG CAP PO SCH (14:28)
[2018-02-01] MEDS ORDERED: Anagrelide HCl 0.5 MG CAP PO SCH (14:28)
[2018-02-01] MEDS ORDERED: Promethazine HCl 25 MG/ML VIAL SLOW IVP PRN (15:59)
[2018-02-01] MEDS ORDERED: Promethazine HCl 25 MG/ML VIAL IM PRN (15:59)
[2018-02-01] MEDS ORDERED: Ondansetron HCl/PF 4 MG/2 ML Vial IVP PRN (15:59)
[2018-02-01] MEDS: Anagrelide HCl 0.5 MG CAP PO SCH ×2 (16:33→18:18)
[2018-02-01] MEDS: Hydroxyurea 500 MG CAP PO SCH ×2 (16:33→18:18)
--- NOTE | 2018-02-01 19:33 | OP ---
DATE OF PROCEDURE: 02/01/2018 PROCEDURE: Colonoscopy. PREOPERATIVE DIAGNOSIS: Gastrointestinal bleed. OPERATIVE PROCEDURE IN DETAIL: Informed consent was obtained from the patient. She was sedated with total intravenous anesthesia. The rectal exam was performed and was normal. The colonoscope was ad vanced to the cecum where the ileocecal valve was identified and transillumination in the right lower quadrant. Preparation quality was poor, given that she only had enemas as a prep. There was red bl ood and clot throughout the sigmoid and descending colon. Proximal to that, there was no blood in th e stool was light green in the right colon and transverse colon. She had diverticulosis throughout t he colon, but more severe in the left colon. There is inadequate room in the rectum for a good retro flex views, but forward views were normal. IMPRESSION: 1. Severe diverticulosis throughout the colon. This is consistent with a diverticular bleed with re d blood and clot throughout the left colon, but no ongoing active bleeding. No particular diverticul um was identified as the bleeding source. 2. Solid stool scattered throughout the colon. There is no large mass lesion. RECOMMENDATIONS: 1. Speech Pathology evaluation tomorrow to evaluate dysphagia. 2. Advance her diet when she is cleared by Speech Pathology.
[2018-02-01] MEDS: ALPRAZolam 0.25 MG TAB PO PRN (21:15)
[2018-02-02 05:40] LABS: Anion Gap 11 mmol/L (10-20); BUN (Urea Nitrogen) 8 mg/dL (9.8-20.1); Calc. Creatinine Clearance 51 mL/min (70-130); Calcium 7.9 mg/dL (7.8-10.44); Carbon Dioxide 21 mmol/L (23-31); Chloride 103 mmol/L (98-107); Estimated GFR-MDRD Greater than 90; Glucose 79 mg/dL (83-110); Potassium 4.3 mmol/L (3.5-5.1); Sodium 131 mmol/L (136-145)
[2018-02-02 05:52] LABS: Anisocytosis MODERATE=16-30 cells (100X) (0-5/hpf); Band 15 % (5-11); Elliptocytes SLIGHT = 2-5 cells (100X) (0-1/hpf); Eosinophils 5 % (0-10); Hemoglobin 6.6 g/dL (12.0-16.0); Lymphocytes 13 % (21-51); MDiff Complete? YES; Macrocytosis SLIGHT = 6-15 cells (100X) (0-5/hpf); Mean Corpuscular HGB CONC 32.6 g/dL (32.0-36.0); Monocytes 1 % (0-10); Neutrophil 66 % (42-75); Platelet Count 652 thou/uL (130-400); RBC Distribution Width 23.3 % (11.5-14.5); Red Blood Cell (RBC) Count 1.72 mill/uL (4.20-5.40); White Blood Cell (WBC) Count 5.1 thou/uL (4.8-10.8)
[2018-02-02] MEDS: Sodium Chloride 0.9% 1,000 ML IV SCH ×2 (05:55→17:35)
[2018-02-02] MEDS: Levothyroxine Sodium 88 MCG TAB PO SCH (05:55)
[2018-02-02] MEDS: Hydroxyurea 500 MG CAP PO SCH (08:01)
[2018-02-02] MEDS: Amlodipine 5 MG TAB PO SCH (08:01)
[2018-02-02] MEDS: Pantoprazole 40 MG VIAL IVP SCH ×2 (08:02→21:16)
[2018-02-02] MEDS: Anagrelide HCl 0.5 MG CAP PO SCH (08:02)
[2018-02-02] MEDS: ALPRAZolam 0.25 MG TAB PO PRN ×2 (13:02→21:16)
[2018-02-02 13:30] LABS: Hemoglobin 8.7 g/dL (12.0-16.0)
--- NOTE | 2018-02-02 15:55 | PDOC.PN ---
- Subjective Encounter Start Date: 02/02/18 Encounter Start Time: 15:52 Subjective: feels poorly.weak and tired w poor appetite -: care discussed w daughter at bedside -: no BM since yesterday - Objective Resuscitation Status: Resuscitation Status DNR:Do Not Resuscitate MAR Reviewed: Yes Vital Signs & Weight: Vital Signs (12 hours) Temp Pulse Resp BP Pulse Ox 02/02/18 12:15 97.8 F 101 H 16 112/66 95 02/02/18 12:00 97.8 F 101 H 14 107/64 95 02/02/18 08:38 97.6 F 90 14 145/78 H 96 02/02/18 08:01 90 02/02/18 08:00 96 02/02/18 04:00 97.6 F 90 20 112/70 95 Weight Admit Weight 101 lb 14.4 oz Weight 101 lb 14.4 oz I&O: 02/01/18 02/02/18 02/03/18 06:59 06:59 06:59 Intake Total 1500 450 350 Balance 1500 450 350 Result Diagrams: 02/02/18 13:12 02/02/18 04:00 Additional Labs: Laboratory Tests 01/31/18 01/31/18 01/31/18 07:30 14:00 18:25 Hgb 8.2 L 8.1 L 7.4 L 02/01/18 02/01/18 02/02/18 00:31 03:54 04:00 Hgb 8.0 L 8.0 L 6.6 L 02/02/18 13:12 Hgb 8.7 L Phys Exam - Physical Examination Constitutional: NAD pale HEENT: PERRLA, moist MMs, sclera anicteric, oral pharynx no lesions Neck: no nodes, no JVD, supple, full ROM Respiratory: no wheezing, no rales, no rhonchi Cardiovascular: RRR, no significant murmur Gastrointestinal: soft, non-tender, no distention, positive bowel sounds Musculoskeletal: no edema, pulses present Neurological: non-focal, normal sensation, moves all 4 limbs Psychiatric: normal affect, A&O x 3 Skin: no rash Dx/Plan (1) Lower GI bleed Code(s): K92.2 - GASTROINTESTINAL HEMORRHAGE, UNSPECIFIED Status: Acute (2) Acute blood loss anemia Code(s): D62 - ACUTE POSTHEMORRHAGIC ANEMIA Status: Acute (3) Generalized weakness Code(s): R53.1 - WEAKNESS Status: Acute (4) Hematochezia Code(s): K92.1 - MELENA Status: Acute (5) Recent cerebrovascular accident (CVA) Code(s): Z86.73 - PRSNL HX OF TIA (TIA), AND CEREB INFRC W/O RESID DEFICITS Status: Acute (6) Dysphagia Code(s): R13.10 - DYSPHAGIA, UNSPECIFIED Status: Acute Comment: PUMP ERECTOR consulted (7) MDS (myelodysplastic syndrome) Code(s): D46.9 - MYELODYSPLASTIC SYNDROME, UNSPECIFIED Status: Chronic Comment: on Anagrelide and Hydroxyurea - Plan plan discussed w/ family, out of bed/ambulate H/H low this morning.Transfuse 1 unit prbs w recheck H/H stable -: follow final GI recs. -: colonoscopy w/o source of active bleed -: cont MDS meds per oncology recs -: restart diet.discussed w PUMP ERECTOR. * . Review of Systems - Review of Systems Constitutional: weakness, malaise. negative: fever, chills, sweats, other ENT: negative: Ear Pain, Ear Discharge, Nose Pain, Nose Discharge, Nose Congestion, Mouth Pain, Mouth Swelling, Throat Pain, Throat Swelling, Other Respiratory: negative: Cough, Dry, Shortness of Breath, Hemoptysis, SOB with Excertion, Pleuritic Pain, Sputum, Wheezing Cardiovascular: negative: chest pain, palpitations, orthopnea, paroxysmal nocturnal dyspnea, edema, light headedness, other Gastrointestinal: negative: Nausea, Vomiting, Abdominal Pain, Diarrhea, Constipation, Melena, Hematochezia, Other Genitourinary: negative: Dysuria, Frequency, Incontinence, Hematuria, Retention , Other Musculoskeletal: negative: Neck Pain, Shoulder Pain, Arm Pain, Back Pain, Hand Pain, Leg Pain, Foot Pain, Other - Medications/Allergies Allergies/Adverse Reactions: Allergies Allergy/AdvReac Type Severity Reaction Status Date / Time levofloxacin [From Levaquin] Allergy Verified 01/31/18 12:53 prednisone Allergy Verified 01/31/18 12:53 Medications: Current Medications Acetaminophen (Tylenol) 650 mg PO Q4H PRN PRN Reason: Headache/Fever/Mild Pain (1-3) Alprazolam (Xanax) 0.25 mg PO BID PRN PRN Reason: Anxiety Last Admin: 02/02/18 13:02 Dose: 0.25 mg Amlodipine Besylate (Norvasc) 1.25 mg PO DAILY [facility] Last Admin: 02/02/18 08:01 Dose: 1.25 mg Anagrelide HCl (Agrylin) 1.5 mg PO DAILY [facility] Last Admin: 02/02/18 08:02 Dose: 1.5 mg Benzonatate (Tessalon) 100 mg PO Q6H PRN PRN Reason: Cough Bisacodyl (Dulcolax) 10 mg PO DAILYPRN PRN PRN Reason: Constipation Calcium Carbonate (Tums) 1,000 mg PO Q4H PRN PRN Reason: Heartburn or Indigestion Clonidine (Catapres) 0.1 mg PO Q4H PRN PRN Reason: SBP > _160___ Guaifenesin (Robitussin Sf) 200 mg PO Q4H PRN PRN Reason: Cough Hydralazine HCl (Apresoline) 10 mg SLOW IVP Q4H PRN PRN Reason: SBP > 180 and HR < 70 Hydroxyurea (Hydrea) 500 mg PO DAILY [facility] Last Admin: 02/02/18 08:01 Dose: 500 mg Sodium Chloride (Normal Saline 0.9%) 1,000 mls @ 75 mls/hr IV .[id number] [facility] Last Admin: 02/02/18 05:55 Dose: 1,000 mls Levothyroxine Sodium (Synthroid) 88 mcg PO 0600 [facility] Last Admin: 02/02/18 05:55 Dose: 88 mcg Nitroglycerin (Nitrostat) 0.4 mg SL Q5MIN PRN PRN Reason: Chest Pain Ondansetron HCl (Zofran) 4 mg IVP Q6H PRN PRN Reason: Nausea/Vomiting Pantoprazole Sodium (Protonix) 40 mg IVP Q12HR [facility] Last Admin: 02/02/18 08:02 Dose: 40 mg Senna/Docusate Sodium (Senokot S) 2 tab PO BID PRN PRN Reason: Constipation Sodium Chloride ([place] Nasal [place] 0.65%) 0 ml EA NARE QIDPRN PRN PRN Reason: Nasal Congestion Sodium Chloride (Flush - Normal Saline) 10 ml IVF Q12HR [facility] Last Admin: 02/02/18 08:02 Dose: 10 ml Sodium Chloride (Flush - Normal Saline) 10 ml IVF PRN PRN PRN Reason: Saline Flush Thiamine HCl (Thiamine) 100 mg PO DAILY [facility] Last Admin: 02/02/18 08:02 Dose: 100 mg
[2018-02-02] MEDS: Pyridostigmine Bromide IR 60 MG TAB PO SCH (18:18)
--- NOTE | 2018-02-02 23:17 | CON ---
DATE OF CONSULTATION: 02/02/2018 CONSULTING PHYSICIAN: Hospitalist Service. IMPRESSION: Probable myasthenia gravis. PLAN: 1. Mestinon 60 mg q.6 hours. 2. Prednisone 20 mg per day. 3. Acetylcholine receptor antibody and MuSK antibody. HISTORY OF PRESENT ILLNESS: Ms. Moctezuma is an 87-year-old white female who has been having some prob lems with her speech and swallowing for the last 2 weeks, there has been some variability and the sev erity of it. She denies any double vision. She had not noticed any ptosis or weakness of the extrem ities. She has had an MRI of the brain done as an outpatient which was normal. Her carotid ultrasou nd did not show any stenosis. She was admitted due to the dysphagia. Her barium swallow showed evid ence of aspiration. PAST MEDICAL HISTORY: Unremarkable. FAMILY HISTORY: Noncontributory. MEDICATION LIST: Reviewed. SOCIAL HISTORY: She lives independently. She has children here in town. REVIEW OF SYSTEMS: Otherwise, negative. PHYSICAL EXAMINATION: GENERAL: She is a thin, petite, elderly lady in no acute distress. HEENT: There is about 4 mm of ptosis on the left. Pupils are equal and reactive. Conjunctivae grupo r. Oropharynx is clear. NECK: Supple. EXTREMITIES: No cyanosis. NEUROLOGIC: She is alert and cooperative. Her speech was fluent with a nasal quality. Cranial nerv e exam was remarkable for marked facial weakness, especially an eye closure muscles. Neck flexion wa s 3/5, neck extension was 4/5, muscle strength testing in the arms showed 4-/5, deltoids, biceps and triceps, hip flexion was relatively good, ankle flexion was 4- bilaterally. Sensation is intact. Ga it was not tested. Given the clinical picture of ptosis, dysarthria and generalized weakness are strongly suspect this i s myasthenia gravis. We will begin treatment this evening and will follow up with her.
[2018-02-03] MEDS: Sodium Chloride 0.9% 1,000 ML IV SCH ×2 (00:04→21:40)
[2018-02-03] MEDS: Pyridostigmine Bromide IR 60 MG TAB PO SCH ×4 (00:07→16:41)
[2018-02-03] MEDS: Levothyroxine Sodium 88 MCG TAB PO SCH (05:47)
[2018-02-03 06:04] LABS: Hemoglobin 8.4 g/dL (12.0-16.0)
[2018-02-03 06:25] LABS: Anion Gap 12 mmol/L (10-20); BUN (Urea Nitrogen) 7 mg/dL (9.8-20.1); Calc. Creatinine Clearance 51 mL/min (70-130); Calcium 8.1 mg/dL (7.8-10.44); Carbon Dioxide 21 mmol/L (23-31); Chloride 103 mmol/L (98-107); Estimated GFR-MDRD Greater than 90; Glucose 81 mg/dL (83-110); Potassium 3.6 mmol/L (3.5-5.1); Sodium 132 mmol/L (136-145)
[2018-02-03] MEDS: Pantoprazole 40 MG VIAL IVP SCH ×2 (08:14→21:01)
[2018-02-03] MEDS: Amlodipine 5 MG TAB PO SCH (08:15)
[2018-02-03] MEDS: Anagrelide HCl 0.5 MG CAP PO SCH (08:16)
[2018-02-03] MEDS: predniSONE 20 MG TAB PO SCH (08:16)
--- NOTE | 2018-02-03 08:16 | PRG ---
DATE OF SERVICE: 02/02/2018 SUBJECTIVE: Ms. Moctezuma still cannot really drink anything without choking. She is not eating much. She has had no further bowel movements. She ate her first meal but says she could not really eat m uch. OBJECTIVE: VITAL SIGNS: Temperature is 97, pulse 101, blood pressure 112/66, respirations 18. LUNGS: Clear. ABDOMEN: Soft, nontender. Patient is frail. EXTREMITIES: No clubbing, cyanosis or edema. LABORATORY STUDIES: Hemoglobin is 8.7 at 1300 today, 6.6 this morning. She did have a unit of blood this morning. She has had no overt bleeding today per the nurse. Yesterday, she had a colonoscopy for a positive tagged blood cell count in the right lower quadrant. She had old clot and blood, but no active bleeding, likely this was diverticular bleed related to her aspirin and Plavix. She shows no signs of bleeding now. ASSESSMENT AND PLAN: 1. Myelodysplastic syndrome. Platelet count of 600-700. 2. Cerebrovascular accident. The patient reports she had a "transient ischemic attack" as does the daughter; however, she has residual deficits with dysarthria and dysphagia, and this is not consisten t with a transient ischemic attack, but is suggestive more of a cerebrovascular accident. Apparently she had some outpatient studies at the [facility] and was going to see Dr. Alvarez in [facility]. RECOMMENDATIONS: 1. Neurology consultation. Patient may be evaluated to go to rehabilitation. 2. I have asked Speech Pathology to perform a modified barium swallow to assess her risk of aspirati on to see if she can take anything at all. The patient does not want a modified diet. She does not want a PEG tube, but if the option is for her not that she cannot eat and take anything in, which has been the case so far that she may want to consider hospice or other options. She has lost about 8 p ounds in 2 weeks according to her daughter, and she is very frail and thin and does not have a much m ore capacity for weight loss. 3. Bleeding seems to be stopped. We would hold anticoagulation for now. Again, it would be reasona ble to get Neurology involved, and may even get Hematology involved with an elevated platelet count. She may be at increased risk for clotting. I need to address this in other fashion with the recent stroke. I have asked nurse to obtain records from the outside hospital.
[2018-02-03] MEDS: Hydroxyurea 500 MG CAP PO SCH (08:17)
[2018-02-03] MEDS: ALPRAZolam 0.25 MG TAB PO PRN (08:36)
--- NOTE | 2018-02-03 15:29 | PDOC.PN ---
- Subjective Encounter Start Date: 02/03/18 Encounter Start Time: 15:27 Subjective: feels much better. was actually able to walk in hallway -: eating without problem - Objective Resuscitation Status: Resuscitation Status DNR:Do Not Resuscitate MAR Reviewed: Yes Vital Signs & Weight: Vital Signs (12 hours) Temp Pulse Resp BP BP Pulse Ox 02/03/18 09:05 127/71 02/03/18 08:15 80 02/03/18 07:46 97.8 F 80 20 126/67 95 02/03/18 04:00 98.1 F 80 20 104/63 95 Weight Admit Weight 101 lb 14.4 oz Weight 101 lb 14.4 oz I&O: 02/02/18 02/03/18 02/04/18 06:59 06:59 06:59 Intake Total 450 2900 Balance 450 2900 Result Diagrams: 02/03/18 03:59 02/03/18 03:59 Additional Labs: Laboratory Tests 01/31/18 01/31/18 02/01/18 14:00 18:25 00:31 Hgb 8.1 L 7.4 L 8.0 L 02/01/18 02/02/18 02/02/18 03:54 04:00 13:12 Hgb 8.0 L 6.6 L 8.7 L 02/03/18 03:59 Hgb 8.4 L Phys Exam - Physical Examination Constitutional: NAD pale ,weak looking HEENT: PERRLA, moist MMs, sclera anicteric, TM's clear, oral pharynx no lesions , 2+ tonsils Neck: no nodes, no JVD, supple, full ROM Respiratory: no wheezing, no rales, no rhonchi, clear to auscultation bilateral Cardiovascular: RRR, no significant murmur Gastrointestinal: soft, non-tender, no distention, positive bowel sounds Musculoskeletal: no edema, pulses present Neurological: non-focal, normal sensation, moves all 4 limbs Psychiatric: normal affect, A&O x 3 Skin: no rash Dx/Plan (1) Myasthenia gravis Code(s): G70.00 - MYASTHENIA GRAVIS WITHOUT (ACUTE) EXACERBATION Status: Acute Comment: As per neurology.on prednisone and mastinon (2) Lower GI bleed Code(s): K92.2 - GASTROINTESTINAL HEMORRHAGE, UNSPECIFIED Status: Acute Comment: H/H stable. [place] diverticular (3) Acute blood loss anemia Code(s): D62 - ACUTE POSTHEMORRHAGIC ANEMIA Status: Acute (4) Generalized weakness Code(s): R53.1 - WEAKNESS Status: Acute (5) Hematochezia Code(s): K92.1 - MELENA Status: Acute (6) Recent cerebrovascular accident (CVA) Code(s): Z86.73 - PRSNL HX OF TIA (TIA), AND CEREB INFRC W/O RESID DEFICITS Status: Acute (7) Dysphagia Code(s): R13.10 - DYSPHAGIA, UNSPECIFIED Status: Acute Comment: WELDER EXPERIMENTAL consulted (8) MDS (myelodysplastic syndrome) Code(s): D46.9 - MYELODYSPLASTIC SYNDROME, UNSPECIFIED Status: Chronic Comment: on Anagrelide and Hydroxyurea - Plan plan discussed w/ family, PT/OT, out of bed/ambulate, DVT proph w/SCDs H/H stable. -: start DC planning -: discussed w GI-MBS cancelled by Neurology.OK to cancel -: rehab eval w possible DC in 24-48 hr -: Op f/u w Oncology & neurology .am labs * . Review of Systems - Review of Systems Constitutional: weakness, malaise ENT: negative: Ear Pain, Ear Discharge, Nose Pain, Nose Discharge, Nose Congestion, Mouth Pain, Mouth Swelling, Throat Pain, Throat Swelling, Other Respiratory: negative: Cough, Dry, Shortness of Breath, Hemoptysis, SOB with Excertion, Pleuritic Pain, Sputum, Wheezing Cardiovascular: negative: chest pain, palpitations, orthopnea, paroxysmal nocturnal dyspnea, edema, light headedness, other Gastrointestinal: negative: Nausea, Vomiting, Abdominal Pain, Diarrhea, Constipation, Melena, Hematochezia, Other Genitourinary: negative: Dysuria, Frequency, Incontinence, Hematuria, Retention , Other Musculoskeletal: negative: Neck Pain, Shoulder Pain, Arm Pain, Back Pain, Hand Pain, Leg Pain, Foot Pain, Other Skin: negative: Rash, Lesions, [place], Bruising, Other Neurological: negative: Weakness, Numbness, Incoordination, Change in Speech, Confusion, Seizures, Other - Medications/Allergies Allergies/Adverse Reactions: Allergies Allergy/AdvReac Type Severity Reaction Status Date / Time levofloxacin [From Levaquin] Allergy Verified 01/31/18 12:53 prednisone Allergy Verified 01/31/18 12:53 Medications: Current Medications Acetaminophen (Tylenol) 650 mg PO Q4H PRN PRN Reason: Headache/Fever/Mild Pain (1-3) Alprazolam (Xanax) 0.25 mg PO BID PRN PRN Reason: Anxiety Last Admin: 02/03/18 08:36 Dose: 0.25 mg Amlodipine Besylate (Norvasc) 1.25 mg PO DAILY [facility] Last Admin: 02/03/18 08:15 Dose: 1.25 mg Anagrelide HCl (Agrylin) 1.5 mg PO DAILY [facility] Last Admin: 02/03/18 08:16 Dose: 1.5 mg Benzonatate (Tessalon) 100 mg PO Q6H PRN PRN Reason: Cough Bisacodyl (Dulcolax) 10 mg PO DAILYPRN PRN PRN Reason: Constipation Calcium Carbonate (Tums) 1,000 mg PO Q4H PRN PRN Reason: Heartburn or Indigestion Clonidine (Catapres) 0.1 mg PO Q4H PRN PRN Reason: SBP > _160___ Guaifenesin (Robitussin Sf) 200 mg PO Q4H PRN PRN Reason: Cough Hydralazine HCl (Apresoline) 10 mg SLOW IVP Q4H PRN PRN Reason: SBP > 180 and HR < 70 Hydroxyurea (Hydrea) 500 mg PO DAILY [facility] Last Admin: 02/03/18 08:17 Dose: 500 mg Sodium Chloride (Normal Saline 0.9%) 1,000 mls @ 75 mls/hr IV .[id number] [facility] Last Admin: 02/03/18 00:04 Dose: 1,000 mls Levothyroxine Sodium (Synthroid) 88 mcg PO 0600 [facility] Last Admin: 02/03/18 05:47 Dose: 88 mcg Nitroglycerin (Nitrostat) 0.4 mg SL Q5MIN PRN PRN Reason: Chest Pain Ondansetron HCl (Zofran) 4 mg IVP Q6H PRN PRN Reason: Nausea/Vomiting Pantoprazole Sodium (Protonix) 40 mg IVP Q12HR [facility] Last Admin: 02/03/18 08:14 Dose: 40 mg Prednisone (Prednisone) 20 mg PO QAM [facility] Last Admin: 02/03/18 08:16 Dose: 20 mg Pyridostigmine [place] (Mestinon) 60 mg PO Q6HR [facility] Last Admin: 02/03/18 11:53 Dose: 60 mg Senna/Docusate Sodium (Senokot S) 2 tab PO BID PRN PRN Reason: Constipation Sodium Chloride ([place] Nasal [place] 0.65%) 0 ml EA NARE QIDPRN PRN PRN Reason: Nasal Congestion Sodium Chloride (Flush - Normal Saline) 10 ml IVF Q12HR [facility] Last Admin: 02/03/18 08:18 Dose: 10 ml Sodium Chloride (Flush - Normal Saline) 10 ml IVF PRN PRN PRN Reason: Saline Flush Thiamine HCl (Thiamine) 100 mg PO DAILY [facility] Last Admin: 02/03/18 08:15 Dose: 100 mg
[2018-02-03] MEDS ORDERED: Loperamide HCl 2 MG CAP PO PRN (20:12)
[2018-02-04] MEDS: Pyridostigmine Bromide IR 60 MG TAB PO SCH ×5 (00:20→23:23)
[2018-02-04] MEDS: ALPRAZolam 0.25 MG TAB PO PRN ×2 (00:20→17:07)
[2018-02-04 04:54] LABS: Hemoglobin 7.9 g/dL (12.0-16.0)
[2018-02-04] MEDS: Sodium Chloride 0.9% 1,000 ML IV SCH (05:30)
[2018-02-04] MEDS: Levothyroxine Sodium 88 MCG TAB PO SCH (06:37)
[2018-02-04] MEDS: Amlodipine 5 MG TAB PO SCH (10:00)
[2018-02-04] MEDS: Anagrelide HCl 0.5 MG CAP PO SCH (10:00)
[2018-02-04] MEDS: Hydroxyurea 500 MG CAP PO SCH (10:00)
[2018-02-04] MEDS: predniSONE 20 MG TAB PO SCH (10:00)
[2018-02-04] MEDS: Pantoprazole 40 MG VIAL IVP SCH ×2 (10:01→19:51)
[2018-02-04] MEDS ORDERED: Lorazepam 2 MG/ML VIAL SLOW IVP PRN (11:41)
--- NOTE | 2018-02-04 12:16 | EKG ---
Test Reason : Blood Pressure : / mmHG Vent. Rate : 088 BPM Atrial Rate : 088 BPM P-R Int : 164 ms QRS Dur : 072 ms QT Int : 398 ms P-R-T Axes : 040 -13 119 degrees QTc Int : 481 ms Normal sinus rhythm Prolonged QT Abnormal ECG Confirmed by MELINDA ROMAN ([id number]), publications editor BONNIE LEUNG ([id number]) on 02/04/2018 12:16:10 PM Referred By: Confirmed By:MELINDA ROMAN
--- NOTE | 2018-02-04 12:16 | EKG ---
Test Reason : Blood Pressure : / mmHG Vent. Rate : 085 BPM Atrial Rate : 085 BPM P-R Int : 164 ms QRS Dur : 072 ms QT Int : 418 ms P-R-T Axes : 051 -12 125 degrees QTc Int : 497 ms Normal sinus rhythm Nonspecific T wave abnormality Abnormal ECG Confirmed by MELINDA ROMAN ([id number]), design editor BONNIE LEUNG ([id number]) on 02/04/2018 12:16:17 PM Referred By: Confirmed By:MELINDA ROMAN
--- NOTE | 2018-02-04 13:33 | PDOC.EVN ---
Event Note - Event Note Event Note: ACP NOTE Pt's family approached me in hallway stating they need to readdress DC destination as their mother does not want rehab and wants to "" They want ot respect Pt's wishes and need some help and info and time to arrange things for her at home Reassured them that i will consult palliative care team. Pt seen and reports that she did not get any sleep last night and feels"awful" and wants to . reports that she feels choking and can't swallow but RN reports that she took pills fine. ordered IV Ativan per family request as symptoms are being exacerbated by anxiety. Family discussed termite control service representative prognosis and i discussed MDS prognosis with or without treatment & encouraged them to discuss it further w her Oncologist as I remind them every day. remained them that she has been cleared by SPECIAL EDUCATION EDUCATIONAL ASSISTANT for safe swallow. pt has refused PEG to GI recently Discussed DC options and Pt now unsure. She keeps changing her mind about home or rehab Family approached me again later after this conversation that she now wants rehab and they want Palliative team to here as soon as possible. Once again reassurance provided that carlos Notified Ms zimmerman and they can leave their phone # so we will contact them care discussed w Ms Zimmerman on phone who will see pt shortly will reassess swollowing issue post Ativan as i feel symptoms are due to anxiety more than actual dysphagia acutely. TOTAL TIME SPENT IN ACP DISCUSSIONS 25 MINUTES
[2018-02-04] MEDS ORDERED: traZODone HCl 50 MG TAB PO PRN (14:17)
[2018-02-04] MEDS ORDERED: Melatonin 3 MG TAB PO PRN (14:17)
[2018-02-04] MEDS ORDERED: Temazepam 15 MG CAP PO PRN (14:17)
--- NOTE | 2018-02-04 14:19 | PDOC.PN ---
- Subjective Encounter Start Date: 02/04/18 Encounter Start Time: 14:18 Subjective: c/o poor sleep last night. -: c/o choking and not being able to swollow - Objective Resuscitation Status: Resuscitation Status DNR:Do Not Resuscitate MAR Reviewed: Yes Vital Signs & Weight: Vital Signs (12 hours) Temp Pulse Resp BP BP Pulse Ox 02/04/18 10:00 75 132/70 02/04/18 07:54 98.1 F 75 18 132/70 94 L Weight Admit Weight 101 lb 14.4 oz Weight 101 lb 14.4 oz I&O: 02/03/18 02/04/18 02/05/18 06:59 06:59 06:59 Intake Total 2900 2400 1300 Balance 2900 2400 1300 Result Diagrams: 02/04/18 03:55 02/03/18 03:59 Phys Exam - Physical Examination Constitutional: NAD pale HEENT: PERRLA, moist MMs, sclera anicteric, oral pharynx no lesions Neck: no nodes, no JVD, supple, full ROM Respiratory: no wheezing, no rales, no rhonchi, clear to auscultation bilateral Cardiovascular: RRR, no significant murmur, no rub Gastrointestinal: soft, non-tender, no distention, positive bowel sounds Musculoskeletal: no edema, pulses present Neurological: non-focal, normal sensation, moves all 4 limbs Psychiatric: normal affect, A&O x 3 Skin: no rash Dx/Plan (1) Myasthenia gravis Code(s): G70.00 - MYASTHENIA GRAVIS WITHOUT (ACUTE) EXACERBATION Status: Acute Comment: As per neurology.on prednisone and mastinon (2) Lower GI bleed Code(s): K92.2 - GASTROINTESTINAL HEMORRHAGE, UNSPECIFIED Status: Acute Comment: H/H stable. Likley diverticular (3) Acute blood loss anemia Code(s): D62 - ACUTE POSTHEMORRHAGIC ANEMIA Status: Acute (4) Generalized weakness Code(s): R53.1 - WEAKNESS Status: Acute (5) Hematochezia Code(s): K92.1 - MELENA Status: Acute (6) Recent cerebrovascular accident (CVA) Code(s): Z86.73 - PRSNL HX OF TIA (TIA), AND CEREB INFRC W/O RESID DEFICITS Status: Acute (7) Dysphagia Code(s): R13.10 - DYSPHAGIA, UNSPECIFIED Status: Acute Comment: COMPUTER PROJECT MANAGER consulted (8) MDS (myelodysplastic syndrome) Code(s): D46.9 - MYELODYSPLASTIC SYNDROME, UNSPECIFIED Status: Chronic Comment: on Anagrelide and Hydroxyurea - Plan PT/OT, out of bed/ambulate, DVT proph w/SCDs After discussion w PCT,pt would like to try Rehab.will arrange -: add ativan prn.add prn meds for insomnia -: cont rest as below -: monitor overnight.will discuss w GI if dysphagia persists .ramon anxiety -: HD stable. H/H stable.recheck in am.no bleeding * . Review of Systems - Review of Systems Constitutional: weakness, malaise. negative: fever, chills, sweats, other Respiratory: negative: Cough, Dry, Shortness of Breath, Hemoptysis, SOB with Excertion, Pleuritic Pain, Sputum, Wheezing Cardiovascular: negative: chest pain, palpitations, orthopnea, paroxysmal nocturnal dyspnea, edema, light headedness, other Gastrointestinal: Other. negative: Nausea, Vomiting, Abdominal Pain, Diarrhea, Constipation, Melena, Hematochezia Genitourinary: negative: Dysuria, Frequency, Incontinence, Hematuria, Retention , Other Musculoskeletal: negative: Neck Pain, Shoulder Pain, Arm Pain, Back Pain, Hand Pain, Leg Pain, Foot Pain, Other Neurological: negative: Weakness, Numbness, Incoordination, Change in Speech, Confusion, Seizures, Other - Medications/Allergies Allergies/Adverse Reactions: Allergies Allergy/AdvReac Type Severity Reaction Status Date / Time levofloxacin [From Levaquin] Allergy Verified 01/31/18 12:53 prednisone Allergy Verified 01/31/18 12:53 Medications: Current Medications Acetaminophen (Tylenol) 650 mg PO Q4H PRN PRN Reason: Headache/Fever/Mild Pain (1-3) Alprazolam (Xanax) 0.25 mg PO BID PRN PRN Reason: Anxiety Last Admin: 02/04/18 00:20 Dose: 0.25 mg Amlodipine Besylate (Norvasc) 1.25 mg PO DAILY [facility] Last Admin: 02/04/18 10:00 Dose: 1.25 mg Anagrelide HCl (Agrylin) 1.5 mg PO DAILY [facility] Last Admin: 02/04/18 10:00 Dose: 1.5 mg Benzonatate (Tessalon) 100 mg PO Q6H PRN PRN Reason: Cough Bisacodyl (Dulcolax) 10 mg PO DAILYPRN PRN PRN Reason: Constipation Calcium Carbonate (Tums) 1,000 mg PO Q4H PRN PRN Reason: Heartburn or Indigestion Clonidine (Catapres) 0.1 mg PO Q4H PRN PRN Reason: SBP > _160___ Ferrous Sulfate (Feosol) 325 mg PO BID-[facility] Guaifenesin (Robitussin Sf) 200 mg PO Q4H PRN PRN Reason: Cough Hydralazine HCl (Apresoline) 10 mg SLOW IVP Q4H PRN PRN Reason: SBP > 180 and HR < 70 Hydroxyurea (Hydrea) 500 mg PO DAILY [facility] Last Admin: 02/04/18 10:00 Dose: 500 mg Levothyroxine Sodium (Synthroid) 88 mcg PO 0600 [facility] Last Admin: 02/04/18 06:37 Dose: 88 mcg Loperamide HCl (Imodium) 2 mg PO PRN PRN PRN Reason: .AFTER EACH LOOSE STOOL Last Admin: 02/03/18 21:01 Dose: 2 mg Lorazepam (Ativan) 1 mg SLOW IVP Q4H PRN PRN Reason: Anxiety/Agitation Melatonin (Melatonin) 3 mg PO HS PRN PRN Reason: Insomnia Nitroglycerin (Nitrostat) 0.4 mg SL Q5MIN PRN PRN Reason: Chest Pain Ondansetron HCl (Zofran) 4 mg IVP Q6H PRN PRN Reason: Nausea/Vomiting Pantoprazole Sodium (Protonix) 40 mg IVP Q12HR [facility] Last Admin: 02/04/18 10:01 Dose: 40 mg Prednisone (Prednisone) 20 mg PO QAM [facility] Last Admin: 02/04/18 10:00 Dose: 20 mg Pyridostigmine [place] (Mestinon) 60 mg PO Q6HR [facility] Last Admin: 02/04/18 13:19 Dose: 60 mg Senna/Docusate Sodium (Senokot S) 2 tab PO BID PRN PRN Reason: Constipation Sodium Chloride ([place] Nasal [place] 0.65%) 0 ml EA NARE QIDPRN PRN PRN Reason: Nasal Congestion Sodium Chloride (Flush - Normal Saline) 10 ml IVF Q12HR [facility] Last Admin: 02/04/18 10:01 Dose: Not Given Sodium Chloride (Flush - Normal Saline) 10 ml IVF PRN PRN PRN Reason: Saline Flush Temazepam (Restoril) 15 mg PO HSPRN PRN PRN Reason: Insomnia Thiamine HCl (Thiamine) 100 mg PO DAILY [facility] Last Admin: 02/04/18 10:00 Dose: 100 mg Trazodone HCl (Desyrel) 50 mg PO HS PRN PRN Reason: Insomnia
[2018-02-04] MEDS: Ferrous Sulfate 325 MG TAB PO SCH (17:06)
[2018-02-05] MEDS: Pyridostigmine Bromide IR 60 MG TAB PO SCH ×2 (06:00→11:12)
[2018-02-05] MEDS: Levothyroxine Sodium 88 MCG TAB PO SCH (06:00)
[2018-02-05] MEDS: Amlodipine 5 MG TAB PO SCH (08:00)
[2018-02-05] MEDS: predniSONE 20 MG TAB PO SCH (08:00)
[2018-02-05] MEDS: Ferrous Sulfate 325 MG TAB PO SCH (08:00)
[2018-02-05] MEDS: Anagrelide HCl 0.5 MG CAP PO SCH (08:01)
[2018-02-05] MEDS: Pantoprazole 40 MG VIAL IVP SCH (08:01)
[2018-02-05] MEDS: Hydroxyurea 500 MG CAP PO SCH (08:01)
[2018-02-05 11:24] VITALS: BP 132/73; TEMP 98.1
--- NOTE | 2018-02-05 11:31 | PDOC.PN ---
- Subjective Encounter Start Date: 02/05/18 Encounter Start Time: 11:29 Subjective: feels better able to eat and drink but scared that she will choke -: no overnight events - Objective Resuscitation Status: Resuscitation Status DNR:Do Not Resuscitate MAR Reviewed: Yes Vital Signs & Weight: Vital Signs (12 hours) Temp Pulse Resp BP Pulse Ox 02/05/18 11:00 98.1 F 88 18 132/73 94 L 02/05/18 08:00 98.3 F 75 18 136/70 96 Weight Admit Weight 101 lb 14.4 oz Weight 101 lb 14.4 oz I&O: 02/04/18 02/05/18 02/06/18 06:59 06:59 06:59 Intake Total 2400 2400 Balance 2400 2400 Result Diagrams: 02/05/18 05:00 02/03/18 03:59 Additional Labs: Laboratory Tests 01/31/18 01/31/18 02/01/18 07:30 18:25 03:54 Hgb 8.2 L 7.4 L 8.0 L 02/02/18 02/03/18 02/04/18 13:12 03:59 03:55 Hgb 8.7 L 8.4 L 7.9 L 02/05/18 05:00 Hgb 8.0 L Phys Exam - Physical Examination Constitutional: NAD HEENT: PERRLA, moist MMs, sclera anicteric, oral pharynx no lesions Neck: no nodes, no JVD, supple, full ROM Respiratory: no wheezing, no rales, no rhonchi, clear to auscultation bilateral Cardiovascular: RRR, no significant murmur, no rub Gastrointestinal: soft, non-tender, no distention, positive bowel sounds Musculoskeletal: no edema, pulses present Neurological: non-focal, normal sensation, moves all 4 limbs Psychiatric: normal affect, A&O x 3 Skin: no rash Dx/Plan (1) Myasthenia gravis Code(s): G70.00 - MYASTHENIA GRAVIS WITHOUT (ACUTE) EXACERBATION Status: Acute Comment: As per neurology.on prednisone and mastinon (2) Lower GI bleed Code(s): K92.2 - GASTROINTESTINAL HEMORRHAGE, UNSPECIFIED Status: Acute Comment: H/H stable. Likley diverticular (3) Acute blood loss anemia Code(s): D62 - ACUTE POSTHEMORRHAGIC ANEMIA Status: Acute Comment: H/H stable now.no more bleed (4) Generalized weakness Code(s): R53.1 - WEAKNESS Status: Acute (5) Hematochezia Code(s): K92.1 - MELENA Status: Acute (6) Recent cerebrovascular accident (CVA) Code(s): Z86.73 - PRSNL HX OF TIA (TIA), AND CEREB INFRC W/O RESID DEFICITS Status: Acute Comment: Thrombocytosis. On Hydroxyures and anagrelide (7) Dysphagia Code(s): R13.10 - DYSPHAGIA, UNSPECIFIED Status: Acute Comment: BLOCK PAVER consulted.Functional. (8) MDS (myelodysplastic syndrome) Code(s): D46.9 - MYELODYSPLASTIC SYNDROME, UNSPECIFIED Status: Chronic Comment: on Anagrelide and Hydroxyurea - Plan PT/OT, out of bed/ambulate, DVT proph w/SCDs HD stable.eating & swollowing good -: ready to go to rehab today -: ECHO results pending, follow as an OP -: Cont mastinon & prednisone on DC.confirmed w neuro -: OP f/u w GI & oncology * . Review of Systems - Review of Systems Constitutional: weakness, malaise. negative: fever, chills, sweats, other ENT: negative: Ear Pain, Ear Discharge, Nose Pain, Nose Discharge, Nose Congestion, Mouth Pain, Mouth Swelling, Throat Pain, Throat Swelling, Other Respiratory: negative: Cough, Dry, Shortness of Breath, Hemoptysis, SOB with Excertion, Pleuritic Pain, Sputum, Wheezing Cardiovascular: negative: chest pain, palpitations, orthopnea, paroxysmal nocturnal dyspnea, edema, light headedness, other Gastrointestinal: negative: Nausea, Vomiting, Abdominal Pain, Diarrhea, Constipation, Melena, Hematochezia, Other Genitourinary: negative: Dysuria, Frequency, Incontinence, Hematuria, Retention , Other Musculoskeletal: negative: Neck Pain, Shoulder Pain, Arm Pain, Back Pain, Hand Pain, Leg Pain, Foot Pain, Other Neurological: negative: Weakness, Numbness, Incoordination, Change in Speech, Confusion, Seizures, Other - Medications/Allergies Allergies/Adverse Reactions: Allergies Allergy/AdvReac Type Severity Reaction Status Date / Time levofloxacin [From Levaquin] Allergy Verified 01/31/18 12:53 prednisone Allergy Verified 01/31/18 12:53 Medications: Current Medications Acetaminophen (Tylenol) 650 mg PO Q4H PRN PRN Reason: Headache/Fever/Mild Pain (1-3) Alprazolam (Xanax) 0.25 mg PO BID PRN PRN Reason: Anxiety Last Admin: 02/04/18 17:07 Dose: 0.25 mg Amlodipine Besylate (Norvasc) 1.25 mg PO DAILY [facility] Last Admin: 02/05/18 08:00 Dose: 1.25 mg Anagrelide HCl (Agrylin) 1.5 mg PO DAILY [facility] Last Admin: 02/05/18 08:01 Dose: 1.5 mg Benzonatate (Tessalon) 100 mg PO Q6H PRN PRN Reason: Cough Bisacodyl (Dulcolax) 10 mg PO DAILYPRN PRN PRN Reason: Constipation Calcium Carbonate (Tums) 1,000 mg PO Q4H PRN PRN Reason: Heartburn or Indigestion Clonidine (Catapres) 0.1 mg PO Q4H PRN PRN Reason: SBP > _160___ Ferrous Sulfate (Feosol) 325 mg PO BID-[facility] Last Admin: 02/05/18 08:00 Dose: 325 mg Guaifenesin (Robitussin Sf) 200 mg PO Q4H PRN PRN Reason: Cough Hydralazine HCl (Apresoline) 10 mg SLOW IVP Q4H PRN PRN Reason: SBP > 180 and HR < 70 Hydroxyurea (Hydrea) 500 mg PO DAILY [facility] Last Admin: 02/05/18 08:01 Dose: 500 mg Levothyroxine Sodium (Synthroid) 88 mcg PO 0600 [facility] Last Admin: 02/05/18 06:00 Dose: 88 mcg Loperamide HCl (Imodium) 2 mg PO PRN PRN PRN Reason: .AFTER EACH LOOSE STOOL Last Admin: 02/03/18 21:01 Dose: 2 mg Lorazepam (Ativan) 1 mg SLOW IVP Q4H PRN PRN Reason: Anxiety/Agitation Melatonin (Melatonin) 3 mg PO HS PRN PRN Reason: Insomnia Nitroglycerin (Nitrostat) 0.4 mg SL Q5MIN PRN PRN Reason: Chest Pain Ondansetron HCl (Zofran) 4 mg IVP Q6H PRN PRN Reason: Nausea/Vomiting Pantoprazole Sodium (Protonix) 40 mg IVP Q12HR [facility] Last Admin: 02/05/18 08:01 Dose: 40 mg Prednisone (Prednisone) 20 mg PO QAM [facility] Last Admin: 02/05/18 08:00 Dose: 20 mg Pyridostigmine [place] (Mestinon) 60 mg PO Q6HR [facility] Last Admin: 02/05/18 11:12 Dose: 60 mg Senna/Docusate Sodium (Senokot S) 2 tab PO BID PRN PRN Reason: Constipation Sodium Chloride ([place] Nasal [place] 0.65%) 0 ml EA NARE QIDPRN PRN PRN Reason: Nasal Congestion Sodium Chloride (Flush - Normal Saline) 10 ml IVF Q12HR [facility] Last Admin: 02/05/18 08:01 Dose: 10 ml Sodium Chloride (Flush - Normal Saline) 10 ml IVF PRN PRN PRN Reason: Saline Flush Temazepam (Restoril) 15 mg PO HSPRN PRN PRN Reason: Insomnia Last Admin: 02/04/18 19:52 Dose: 15 mg Thiamine HCl (Thiamine) 100 mg PO DAILY [facility] Last Admin: 02/05/18 08:00 Dose: 100 mg Trazodone HCl (Desyrel) 50 mg PO HS PRN PRN Reason: Insomnia
[2018-02-05] MEDS: ALPRAZolam 0.25 MG TAB PO PRN (15:27)
--- NOTE | 2018-02-05 17:48 | DIS ---
DATE OF ADMISSION: 01/31/2018 DATE OF DISCHARGE: 02/05/2018 CONDITION AT THE TIME OF DISCHARGE: Stable and improved. DISCHARGE DISPOSITION: [facility]. DISCHARGE DIAGNOSES: 1. Lower gastrointestinal bleed, likely diverticular, stable and stopped now. 2. New diagnosis of myasthenia gravis. 3. Acute blood loss anemia. H&H stable. 4. Generalized weakness. 5. History of recent cerebrovascular accident. 6. Functional dysphagia. 7. Myelodysplastic syndrome. DISCHARGE MEDICATIONS: Home medications as follows: Anagrelide 1.5 mg daily, alprazolam 0.25 p.o. b .i.d. p.r.n., pyridoxine 100 mg daily, thiamine 100 mg daily, Cozaar 25 mg daily, hydroxyurea 500 mg daily, multivitamin daily, levothyroxine 88 mcg daily, Norvasc 1.25 mg daily. New medications: Trazodone 50 mg at bedtime p.r.n., prednisone 20 mg in the morning, Mestinon 60 mg p.o. q.6 hours, Protonix 40 mg daily, melatonin 3 mg p.o. at bedtime p.r.n., and iron sulfate 325 mg p.o. b.i.d. IN-HOUSE CONSULTATION: 1. Gastroenterology, Dr. Benito and Dr. Bailey. 2. Neurology, Dr. Alvarez. PROCEDURES DONE IN THE HOSPITAL: 1. CT scan of the abdomen and pelvis upon presentation on 01/31/2018, which shows diverticulosis wit hout evidence of diverticulitis and chronic-type findings. 2. Nuclear medicine scan for GI bleed, which shows localization of the bleed originating in the left lower quadrant. 3. Colonoscopy by Dr. Bailey on 02/01/2018, which showed severe diverticulosis throughout the colon. This is consistent with a diverticular bleed with red blood and clot throughout the left colon, but no ongoing active bleed. No particular source of bleeding was identified. No large mass lesion was seen. HISTORY OF PRESENT ILLNESS: Ms. Moctezuma is an 87-year-old female who was recently diagnosed with mye lodysplastic syndrome with history of essential thrombocytosis in the past as well as recent diagnosi s of CVA, who got started on aspirin and Plavix as an outpatient, presented to the emergency room wit h complaints of bright red blood per rectum, which was quite large in quantity. She has baseline chr onic anemia with history of myelodysplasia and follows up with Dr. Escalera in the Oncology Clinic fo r infusions. Upon presentation, her hemoglobin was at baseline and she was admitted for furthe r workup. She was hemodynamically stable. Please see admission history and physical for further det ails. HOSPITAL COURSE: The patient's hemoglobin did drop and she had multiple other stools that were brigh t red. Gastroenterology was consulted as well as Oncology. She was taken off aspirin and Plavix and underwent a nuclear medicine GI red blood cell tagged scan, which shows localization in the left low er quadrant. CT scan showed diverticulosis without diverticulitis. She underwent a colonoscopy with out any specific prep, which showed blood and clot in the colon without any specific source of bleedi ng. She had on and off functional dysphagia and speech therapist was consulted. She was cleared for regular diet. Modified barium swallow was canceled as the patient refused the PEG tube for GI docto rs. She also gave history of progressive weakness of 2 weeks' duration and Neurology was consulted. Dr. Alvarez saw the patient and in his opinion, it was myasthenia gravis and she was started on prednison e and Mestinon with some improvement. She was discharged on the same. I have cleared this with Dr. Alvarez. Rehabilitation was arranged for the patient and after going back and forth multiple times, she agreed to go to the rehabilitation. Palliative Care Team was also consulted and the patient was quite depressed and started to talk about a lot. Her 2 daughters were involved in her care a l ot and care was discussed with them multiple times. Eventually, they all came to agreement that the patient will be discharged to rehab, which was arranged earlier today. She was seen and examined prior to discharge. Please see hospitalist progress note from today's date for further detail including [id number] interaction. Total time spent in the discharge, 35 minutes.
--- NOTE | 2018-02-06 07:48 | PRG ---
DATE OF SERVICE: 02/03/2018 SUBJECTIVE: Ms. Moctezuma still is not swallowing well. She states she is fearful to swallow. She wi ll choke on it. She is receiving IV fluids. She has been diagnosed with myasthenia by Neurology. S he has had no further GI bleeding. In fact, the nurses note she had a brown stool. MEDICATIONS: Tylenol, Xanax, Agrylin, benzonatate, Tessalon, Tums, Catapres, hydroxyurea, Nitrostat, Zofran, Protonix, prednisone, Mestinon, Senokot, , Thiamine. PHYSICAL EXAMINATION: GENERAL: Patient is sitting comfortably in bed. VITAL SIGNS: Temperature is 97, pulse 80, blood pressure 127/71. ABDOMEN: Soft, nontender. LABORATORY STUDIES: Hemoglobin is 8.4 this morning. Sodium 132, potassium 3.6, BUN and creatinine a re 7 and 0.56. ASSESSMENT: 1. Oropharyngeal dysphagia secondary to neurologic event. It turns out Neurology saw the patient an d thinks this is myasthenia, not a cerebrovascular accident. 2. Poor p.o. intake. The patient refuses PEG at this point in time, talked with speech pathologist. They cancelled the modified swallow based on the patient's wishes. The family now states that they will do a modified swallow first, we think she should have. At this point with the treatment for my asthenia, hopefully she will have rapid improvement in symptoms. I think she would still benefit fro m some speech pathology treatment. If she does not have improvement, she needs to have modified swal low and possibly a PEG. It seems the patient is going to rehabilitation. With regard to her GI bleed that has resolved, I think this was diverticular related to the Plavix an d aspirin, it seems that she is not going to need either of these since it was not a vascular event p er neurology's impression, so at this time, I would stop her aspirin, Plavix which has been done. RECOMMENDATIONS. Otherwise, we will sign off now. There are no signs of bleeding. The patient has decided she is not going to have a PEG tube at this point in time. If she continues to lose weight, does not have rapid improvement in her swallowing with the treatment for myasthenia, then we would be happy to reevaluate her for a PEG tube.
--- NOTE | 2018-02-08 11:23 | PQF ---
[employer] Pump Operator Crystal Reports Winform ViewerAHMET ESTEBAN RICHA MD [phone] [facility] [id number] CLINICAL DOCUMENTATION CLARIFICATION FORM: POST DISCHARGE Addendum to original discharge summary date: ____ Late entry note date: __ Please exercise your independent, professional judgment in responding to the clarification form. Clinical indicators are provided on the bottom of this form for your review Please check appropriate box(s): AMI TYPE: [ ] Acute Coronary Syndrome (ACS) without Acute IA meaning Unstable Angina [ ] NSTEMI [ ] AMI Type II [ ] STEMI (please also specify site and arterysee below) [ X] Demand Ischemia [ ] Other diagnosis [ ] Unable to determine In addition, please specify: Present on Admission (POA): [ X ] Yes [ ] No [ ] Unable to determine CLINICAL INDICATORS - SIGNS / SYMPTOMS / LABS Elevated biomarkers (CK-MB, Troponin T or I) Elevated Cardiac Enzymes/Nstemi. Most likely this is from demand ischemia from GI bleed- H&P RISKS: Hypertension TREATMENTS: Nitroglycerin TTE [employer] Pump Operator [employer] Reports Winform Viewer(This form is maintained as a part of the permanent medical record) 2014 [employer]. All Rights Reserved [email or web address] [phone] MTDD
== END 2018-02-05 16:37 | DRG 378 ==
LOC: ERS 07:11 → EEVIPCON 07:11 → T4-A 12:47
PROVIDERS: ADMIT Internal Medicine; ATTEND Internal Medicine
PROC: 30233N1 Transfusion of Nonautologous Red Blood Cells into Peripheral Vein, Percutaneous Approach (ICD-10-PCS; 2018-01-31)
PROC: 0DJD8ZZ Inspection of Lower Intestinal Tract, Via Natural or Artificial Opening Endoscopic (ICD-10-PCS; principal; 2018-02-01)
DX: K92.1 Melena (principal); I24.8 Other forms of acute ischemic heart disease; E87.1 Hypo-osmolality and hyponatremia; D62 Acute posthemorrhagic anemia; K57.31 Diverticulosis of large intestine without perforation or abscess with bleeding; D46.9 Myelodysplastic syndrome, unspecified; I10 Essential (primary) hypertension; Z66 Do not resuscitate; F41.9 Anxiety disorder, unspecified; G70.00 Myasthenia gravis without (acute) exacerbation; F45.8 Other somatoform disorders; Z79.82 Long term (current) use of aspirin; Z79.02 Long term (current) use of antithrombotics/antiplatelets; Z86.73 Personal history of transient ischemic attack (TIA), and cerebral infarction without residual deficits; Z85.038 Personal history of other malignant neoplasm of large intestine
CPT/HCPCS: 36415; 36430; 74177; 78278; 80048; 80053; 82274; 82553; 83519; 84484; 85014; 85018; 85025; 85245; 85246; 85610; 85730; 86850; 86870; 86900; 86901; 86922; 93005; 93306; A9604; C9113; G8978-GP-CN; G8979-GP-CK; G8987-GO-CJ; G8988-GO-CI; G8996-GN-CK; G8997-GN-CI; J2001; J2704; J7506; P9016

== ENCOUNTER 2018-03-01 08:22 | Day surgery (SDC) | payer MEDICARE ==
[2018-03-01] MEDS ORDERED: diphenhydrAMINE 25 MG CAP PO SCH (08:45)
[2018-03-01] MEDS ORDERED: Acetaminophen 500 MG TAB PO SCH (08:45)
[2018-03-01 13:14] VITALS: BP 111/55; TEMP 98
== END 2018-03-01 14:39 | disposition home or self-care (01) ==
LOC: ONC/OP 08:22
PROVIDERS: ATTEND Internal Medicine Medical Oncology
DX: D64.9 Anemia, unspecified (principal); Z88.5 Allergy status to narcotic agent; Z88.1 Allergy status to other antibiotic agents
CPT/HCPCS: 36430; 86850; 86900; 86901; 86922; P9016

== ENCOUNTER 2018-03-10 12:07 | Observation (INO) | payer MEDICARE ==
[2018-03-10 14:09] LABS: Hemoglobin 8.6 g/dL (12.0-16.0); Mean Corpuscular HGB CONC 33.3 g/dL (32.0-36.0); Mean Corpuscular Hemoglobin 34.9 pg (27.0-31.0); Mean Platelet Volume 9.8 fL (7.4-10.4); Platelet Count 482 thou/uL (130-400); RBC Distribution Width 26.7 % (11.5-14.5); Red Blood Cell (RBC) Count 2.45 mill/uL (4.20-5.40); White Blood Cell (WBC) Count 9.8 thou/uL (4.8-10.8)
[2018-03-10 14:28] LABS: Anisocytosis MODERATE=16-30 cells (100X) (0-5/hpf); Band 12 % (5-11); Eosinophils 13 % (0-10); Large Platelets SLIGHT; Lymphocytes 4 % (21-51); MDiff Complete? YES; Macrocytosis SLIGHT = 6-15 cells (100X) (0-5/hpf); Monocytes 1 % (0-10); Neutrophil 68 % (42-75); Ovalocytes SLIGHT = 2-5 cells (100X) (0-1/hpf); PLT Morphology Comment Appears Increased; Polychromasia SLIGHT = 2-3 cells (100X) (0-2/hpf); Schistocytes SLIGHT = 2-5 cells (100X) (0-1/hpf)
[2018-03-10 14:38] LABS: ALT (SGPT) 15 U/L (8-55); AST (SGOT) 15 U/L (5-34); Albumin 3.4 g/dL (3.4-4.8); Alkaline Phosphatase 64 U/L (40-150); Anion Gap 15 mmol/L (10-20); BUN (Urea Nitrogen) 15 mg/dL (9.8-20.1); Bilirubin, Total 0.7 mg/dL (0.2-1.2); Calc. Creatinine Clearance 0 mL/min (70-130); Calcium 8.9 mg/dL (7.8-10.44); Carbon Dioxide 29 mmol/L (23-31); Chloride 96 mmol/L (98-107); Estimated GFR-MDRD 89; Globulin 2.7 g/dL (2.4-3.5); Glucose 159 mg/dL (83-110); Potassium 3.5 mmol/L (3.5-5.1); Protein, Total 6.1 g/dL (6.0-8.3); Sodium 136 mmol/L (136-145)
[2018-03-10 15:24] LABS: CKMB 2.2 ng/mL (0-6.6); Troponin I Less than 0.010 ng/mL (< 0.028)
--- NOTE | 2018-03-10 15:28 | RAD ---
FRONTAL VIEW CHEST: Date: 03/10/18 COMPARISON: 12/03/17. INDICATION: New onset emesis. FINDINGS: The cardiac silhouette is mildly enlarged and there is vascular prominence. Interstitial opacities of each lung are present. There is mild pleural based density at the lower chest bilaterally. There is ectasia of the thoracic aorta with vascular calcification. Diffuse osseous degenerative changes. IMPRESSION: 1. COPD. 2. Mild CHF. POS: TPC
[2018-03-10 15:31] LABS: Bilirubin Moderate (Negative); Blood, Urine Negative (Negative); Clarity CLEAR (Clear); Glucose, Urine (Dipstick) Negative (Negative); Leukocyte Trace (Negative); Nitrite Negative (Negative); Protein, Urine (Dipstick) 30 mg/dL (Neg-Trace); Specific Gravity, Urine 1.027 (1.002-1.036); pH, Urine 5.5 (5.0-9.0)
[2018-03-10 15:34] LABS: WBC/HPF 0-3 HPF (0-3)
[2018-03-10 15:41] LABS: Pathc Cast-AUWi Flag 3.19 (0-2.49)
[2018-03-10 15:53] LABS: Bacteria/HPF Rare-Few HPF (None Seen); Hyaline Casts/LPF 4-6 HYALINE CAST LPF (0-3 Hyaline); RBC/HPF 0-3 HPF (0-3); Renal Epithelial None Seen HPF (0-3); Transitional Epithelial NONE SEEN HPF (0-3)
[2018-03-10 15:54] LABS: Manual Microscopic Reviewed? No Path Casts Seen
[2018-03-10] MEDS ORDERED: Pyridostigmine Bromide IR 60 MG TAB PO SCH ×2 (17:45→23:59)
--- NOTE | 2018-03-10 18:50 | ULT ---
ULTRASOUND WITH DOPPLER DUPLEX VENOUS LOWER EXTREMITY LEFT 03/10/18 CPT: 19164 ICD-10-PCS: B54D HISTORY: Emergency exam for left lower extremity edema. TECHNIQUE: Color flow Doppler, spectral waveform analysis of pulsed Doppler, and craig-scale imaging with yan fernanda and augmentation, were used to evaluate the left common femoral, femoral, popliteal, posterior t ibial, and superficial femoral, veins; and the proximal portions of the profunda femoral and greater saphenous, veins. FINDINGS: There is appropriate compressibility and flow within the deep vein system of the left lower extremity . IMPRESSION: No DVT visualized. POS: TPC
[2018-03-10 19:26] VITALS: BMI 17.8
[2018-03-10] MEDS ORDERED: traZODone HCl 50 MG TAB PO PRN (19:50)
[2018-03-10] MEDS ORDERED: ALPRAZolam 0.25 MG TAB PO PRN (19:50)
[2018-03-10] MEDS ORDERED: Melatonin 3 MG TAB PO PRN (19:50)
[2018-03-10] MEDS ORDERED: Ondansetron ODT 4 MG TAB PO PRN (19:59)
[2018-03-10] MEDS ORDERED: Acetaminophen 650 MG Suppository PR PRN (19:59)
[2018-03-10] MEDS ORDERED: Calcium Carbonate 500 MG ChewTAB PO PRN (19:59)
[2018-03-10] MEDS ORDERED: Acetaminophen 325 MG TAB PO PRN (19:59)
[2018-03-10] MEDS ORDERED: Ondansetron PF 4 MG/2 ML Vial IVP PRN (19:59)
[2018-03-10] MEDS ORDERED: Senokot S 8.6-50 MG TAB PO PRN (19:59)
[2018-03-10] MEDS ORDERED: Bisacodyl 5 MG TAB PO PRN (19:59)
[2018-03-10] MEDS: Sodium Chloride 0.9% 1,000 ML IV SCH (20:47)
[2018-03-10] MEDS: Famotidine/PF 20 mg/2ml Vial SLOW IVP SCH (20:48)
[2018-03-10] MEDS: Famotidine 20 MG TAB PO SCH (20:48)
[2018-03-10] MEDS: Pyridostigmine Bromide IR 60 MG TAB PO SCH (21:23)
[2018-03-11] MEDS ORDERED: Temazepam 15 MG CAP PO PRN (00:22)
--- NOTE | 2018-03-11 03:13 | CON ---
DATE OF CONSULTATION: 03/10/2018 TYPE OF CONSULTATION: Neurology. CHIEF COMPLAINT: Diarrhea and vomiting. PRESENT ILLNESS: This is an 87-year-old female who was diagnosed about 3 or 4 weeks ago as having myasthenia gravis. She came into the hospital for a feeling of weakness and at first was thought to have a TIA and was worked up for that, but then it was decided that it was not a TIA and she was diagnosed with myasthenia gravis. She did have a slightly elevated acetylcholine receptor antibody. She was placed on Mestinon. She is quite sure of the dose, but recently at the facility that she has been living at, she has been on Mestinon 60 mg 1 p.o. every 4 hours. The patient states that she has been feeling kind of tired, but her main complaint is that she has had a lot of diarrhea and today, she was very alarmed because she came because she threw up clear liquid. Her Mestinon was held as it was thought that she was probably on too much since she was getting 60 mg every 4 hours. She states that since it has been held, she has not had anymore diarrhea today. She states that in the last several weeks, she had lost about 20 pounds. She weighs about 90 pounds now. She said she has never been really fat, but this is not very much weight on her. Her chronic medical problems include the myasthenia gravis. She has a history of colorectal carcinoma years ago and she had a history of anemia. She states that she is pretty severely anemic and has been known to be anemic for 3 or 4 years. She is not sure if it has been longer than that or not and she states she takes B12 shots. PAST MEDICAL HISTORY: She has had the diagnosis of myasthenia gravis, colorectal carcinoma, and anemia. REVIEW OF SYSTEMS: A 14-point review of systems is negative except for the diarrhea and vomiting, and also the weight loss. She has not had any double vision. She also states that in the last few weeks, she has had some hoarseness and some difficulty swallowing more than usual. SOCIAL HISTORY: She does not smoke or drink. FAMILY HISTORY: Positive for anemia in her mother and she states her mother took B12 shots. PHYSICAL EXAMINATION: GENERAL: She is awake and alert. VITAL SIGNS: Normal. HEENT: Negative. She is a little hoarse. LUNGS: Clear. HEART: No murmurs. Regular rhythm. EXTREMITIES: No clubbing, cyanosis, or edema. JOINTS: No swelling. SKIN: No rashes. No bruises. ABDOMEN: Not distended. Normal bowel sounds. NEUROLOGICAL: She is awake, alert, oriented x3, very thin. Cranial nerves 2 through 12 tested normally. There was no definite fatigue or prolonged upgaze. No double vision noted. Extraocular movements look intact. Pupils 2 mm and reactive to light bilaterally. Motor, 5/5 strength in the arms and legs. There does appear to be some fatigue proximally, especially in the arms on repetitive muscle testing. Tone is normal. Bulk is very thin. DTRs are 2+. Toes are downgoing. Sensation is normal to light touch and temperature. Coordination is normal. LABORATORY AND DIAGNOSTIC DATA: Review of her chart shows that she did have a recent acetylcholine receptor antibody, which was slightly elevated. She had a recent chest x-ray, which was reported as normal. She has not had a recent GI study. She states that she believes that she has had a colonoscopy, may be twice since she has been 79 years old and she does not think that she has had an upper endoscopy lately. IMPRESSION: Recent diagnosis of myasthenia gravis. She does have a slightly elevated acetylcholine receptor antibody. I suspect that she may have been on too much Mestinon since she was on 60 mg every 4 hours. So, her Mestinon has been reduced to 60 mg every 12 hours and we will see how she does on that. Also, especially since she has had the weight loss and she has had the history of colorectal carcinoma, consider that possibly she has an underlying malignancy, which is resulting in myasthenia like symptoms. I would recommend that she have a CT of the chest and an upper and lower endoscopy to look for an occult malignancy. This was all explained to the patient. She states that she realizes that this could be case that she is 87 and she states that she would not have any surgery or any further treatment of a cancer if that is what she turned out to have. So, she declines having a CT of the chest to look for a thymoma and she declines getting an upper and lower endoscopies. She would just like her diarrhea and vomiting to go away, and since her Mestinon has been lowered, her diarrhea is better. This was all discussed in detail with the patient. Job ID: [id number]
[2018-03-11 05:12] LABS: Anion Gap 14 mmol/L (10-20); BUN (Urea Nitrogen) 11 mg/dL (9.8-20.1); Calc. Creatinine Clearance 42 mL/min (70-130); Calcium 8.1 mg/dL (7.8-10.44); Carbon Dioxide 26 mmol/L (23-31); Chloride 101 mmol/L (98-107); Estimated GFR-MDRD Greater than 90; Glucose 72 mg/dL (83-110); Potassium 3.5 mmol/L (3.5-5.1); Sodium 137 mmol/L (136-145)
[2018-03-11] MEDS: Sodium Chloride 0.9% 1,000 ML IV SCH (05:23)
[2018-03-11 05:35] LABS: Band 14 % (5-11); Eosinophils 11 % (0-10); Hemoglobin 7.8 g/dL (12.0-16.0); Hypochromia MODERATE=16-30 cells (100X) (0-5/hpf); Lymphocytes 9 % (21-51); MDiff Complete? YES; Macrocytosis MODERATE=16-30 cells (100X) (0-5/hpf); Mean Corpuscular HGB CONC 32.8 g/dL (32.0-36.0); Mean Corpuscular Hemoglobin 34.9 pg (27.0-31.0); Mean Platelet Volume 10.2 fL (7.4-10.4); Metamyelocyte 1 % (0-0); Microcytosis SLIGHT = 6-15 cells (100X) (0-5/hpf); Monocytes 7 % (0-10); Neutrophil 55 % (42-75); Ovalocytes SLIGHT = 2-5 cells (100X) (0-1/hpf); PLT Morphology Comment Appears Adequate; Platelet Count 386 thou/uL (130-400); Reactive Lymphocytes 1 % (0-10); Red Blood Cell (RBC) Count 2.23 mill/uL (4.20-5.40); White Blood Cell (WBC) Count 9.2 thou/uL (4.8-10.8)
[2018-03-11] MEDS ORDERED: Levothyroxine Sodium 88 MCG TAB PO SCH (06:00)
[2018-03-11] MEDS ORDERED: predniSONE 20 MG TAB PO SCH (09:00)
[2018-03-11] MEDS ORDERED: Anagrelide HCl 0.5 MG CAP PO SCH (09:00)
[2018-03-11] MEDS ORDERED: Multivitamin W/ Minerals 1 TAB PO SCH (09:00)
[2018-03-11] MEDS ORDERED: Hydroxyurea 500 MG CAP PO SCH (09:00)
[2018-03-11] MEDS ORDERED: Enoxaparin Sodium 30 MG/0.3 ML SYRINGE SC SCH (09:00)
[2018-03-11] MEDS ORDERED: Losartan 25 MG TAB PO SCH (09:00)
[2018-03-11] MEDS ORDERED: Amlodipine 5 MG TAB PO SCH (09:00)
[2018-03-11] MEDS ORDERED: pyridOXINE 50 MG (B6) TAB PO SCH (09:00)
[2018-03-11] MEDS: Pyridostigmine Bromide IR 60 MG TAB PO SCH (10:10)
[2018-03-11] MEDS: Ferrous Sulfate 325 MG TAB PO SCH ×2 (10:10→10:53)
[2018-03-11] MEDS: Famotidine 20 MG TAB PO SCH ×2 (10:12→10:52)
[2018-03-11] MEDS: Famotidine/PF 20 mg/2ml Vial SLOW IVP SCH (10:12)
--- NOTE | 2018-03-11 10:31 | HP ---
CHIEF COMPLAINT: Vomiting, diarrhea, and nausea. HISTORY OF PRESENT ILLNESS: This is an 87-year-old female with past medical history significant for anemia, arthritis, hypothyroidism, colorectal cancer, hypertension, myasthenia gravis, myelodysplasia, presenting with diarrhea and vomiting. Per report, the patient was having breakfast on the day of admission and the patient started having nonbloody, nonbilious vomitus. Of note, the patient stated that she had been having some diarrhea on the day of admission. Per patient, she takes Mestinon 60 mg every 4 hours and she feels like that could be contributing to her diarrhea. The patient's Mestinon has been held, and since the patient's Mestinon has been held, the patient has not had diarrhea and now, the patient is feeling much better. The patient denies any nausea, vomiting, diarrhea, chest pain, abdominal pain, constipation, dysuria, hematuria, melena, hematochezia. REVIEW OF SYSTEMS: All systems are reviewed and are negative at this time. PAST MEDICAL HISTORY: The patient has a past medical history of myasthenia gravis, colorectal carcinoma, and anemia. SOCIAL HISTORY: The patient does not smoke, drink, or do any illicit drugs. FAMILY HISTORY: Positive for anemia in her mother. PHYSICAL EXAMINATION: VITAL SIGNS: The patient's vitals are within normal limits. GENERAL: The patient is lying in bed, very pleasant, speaking in full sentences, not in acute distress. HEENT: Normocephalic, atraumatic. Pupils are equally round and reactive to light. Mucous membranes are dry. NECK: Trachea is midline. Full range of motion. No JVD. LUNGS: Clear to auscultation bilaterally. No wheezing, no rales, no rhonchi are appreciated. CARDIAC: Positive S1, S2. Regular rate and rhythm. No murmurs, no gallops, no rubs appreciated. EXTREMITIES. The patient has 5/5 upper extremities strength, 5/5 lower extremities strength. No edema noted. The patient has good strength bilaterally with good pulses bilaterally. NEUROLOGIC: Cranial nerves 2 through 12 grossly intact. No neurologic deficits noted. SKIN: Warm, dry, and intact. ABDOMEN: Soft, nontender, nondistended. Positive bowel sounds in all quadrants. LABORATORY DATA: WBC is 9.8, hemoglobin is 8.6, hematocrit is 25.7, RDW is 26.7, and platelet count is 482. Sodium is 136, potassium is 3.5, chloride is 96, carbon dioxide is 29, BUN is 15, creatinine is 0.63, AST is 15, ALT is 15, creatine kinase is 22, alkaline phosphatase is 64. Trace leukocyte esterase. ASSESSMENT AND PLAN: This is an 87-year-old female, being admitted for: 1. Nausea, vomiting, and diarrhea, likely due to medication side effect. The patient takes Mestinon for myasthenia gravis. At this point, we have held the patient's Mestinon, and the patient has not had symptoms anymore, the patient is feeling much better. We will continue supportive care. We will give patient IV fluids, and then if the patient continues to get better, we will possibly send the patient back to correction. Neurology is currently on the case, we will follow up with Neurology's recommendations. 2. History of myasthenia gravis. We will cut the patient's Mestinon down to b.i.d. We will follow up with Neurology's recommendation. 3. History of colorectal cancer, at this point stable. We will continue to monitor the patient. 4. Myelodysplasia, currently stable. We will continue to monitor the patient. 5. Hypothyroidism. We will continue patient on her home medications. Continue to monitor the patient. 6. Hypertension. We will continue to monitor the patient's blood pressure and we will adjust the patient's blood pressure accordingly. 7. Deep vein thrombosis, gastrointestinal prophylaxis. Job ID: [id number]
[2018-03-11 11:42] VITALS: BP 156/78; TEMP 97.9
--- NOTE | 2018-03-12 04:45 | DIS ---
DATE OF ADMISSION: 03/10/2018 DATE OF DISCHARGE: 03/11/2018 PRIMARY CARE PROVIDER: Terrance Justice MD DISCHARGE DIAGNOSES: Nausea and vomiting. CONDITION OF THE PATIENT AT THE TIME OF DISCHARGE: Stable. I assessed Ms. Moctezuma on the day of discharge. She denies any chest pain or shortness of breath. Vital signs are stable. S1 and S2 are heard, regular. Lungs are clear to auscultation bilaterally. HOSPITAL COURSE: Ms. Moctezuma is a pleasant 87-year-old lady, who was admitted to [facility] on 03/10/2018 for nausea and vomiting. Please refer to Dr. Chew's history and physical note dated 03/11/2018 for further details. She was admitted to the medical floor. Her Mestinon dose was decreased to twice daily. She was seen by Neurology Service. Neurology Service also discussed with her having CT scan to rule out any malignancy, as well as bidirectional scope. The patient did not wish to have any studies at this time. Her nausea and vomiting resolved, and she was being discharged home in a stable condition. DISCHARGE MEDICATIONS: 1. Anagrelide 0.5 mg daily. 2. Aspirin 81 mg daily. 3. Hydroxyurea 500 mg daily. 4. Revlimid 5 mg daily. 5. Levothyroxine 88 mcg daily. 6. Montelukast 10 mg daily. 7. Prednisone 20 mg daily. 8. Ambien 10 mg at bedtime. 9. Mestinon 60 mg 2 times a day. Many thanks for allowing me to participate in your patient's care. Please feel free to contact me with any questions or concerns. CONSULTATIONS DURING THIS HOSPITALIZATION: Neurology, Dr. Rosa M Aguilar. DISCHARGE DESTINATION: Home. Job ID: [id number]
--- NOTE | 2018-03-18 12:06 | EKG ---
Test Reason : Blood Pressure : / mmHG Vent. Rate : 112 BPM Atrial Rate : 112 BPM P-R Int : 124 ms QRS Dur : 070 ms QT Int : 328 ms P-R-T Axes : 057 004 080 degrees QTc Int : 447 ms Sinus tachycardia with Premature atrial complexes Nonspecific ST and T wave abnormality Abnormal ECG Confirmed by NADEGE TARIQ DO ([id number]), material expeditor BONNIE LEUNG ([id number] on 03/18/2018 12:05:34 PM Referred By: Confirmed By:NADEGE TARIQ DO
== END 2018-03-11 14:13 | disposition home or self-care (01) ==
LOC: ERS 12:07 → T4-B 19:21
PROVIDERS: ADMIT Internal Medicine; ATTEND Internal Medicine
DX: R11.2 Nausea with vomiting, unspecified (principal); R19.7 Diarrhea, unspecified; D46.9 Myelodysplastic syndrome, unspecified; I10 Essential (primary) hypertension; E03.9 Hypothyroidism, unspecified; Z79.82 Long term (current) use of aspirin; Z79.899 Other long term (current) drug therapy; Z88.8 Allergy status to other drugs, medicaments and biological substances
CPT/HCPCS: 51701; 71045; 80048; 80053; 82550; 82553; 84484; 85025 ×2; 93005; 93971; 96360; 96361 ×2; 96372; 99285; G0378; 36415; 81003; 81015; A4353; J1650; J7506; S0028

== ENCOUNTER 2018-03-11 17:52 | Emergency (ER) | payer MEDICARE ==
[2018-03-11 18:57] LABS: #Basophils 0.2 thou/uL (0.0-0.2); #Eosinphils 0.4 thou/uL (0.0-0.7); #Lymphocytes 0.5 thou/uL (1.20-3.40); #Monocytes 0.3 thou/uL (0.11-0.59); #Neutrophils 8.5 thou/uL (1.40-6.50); %Basophils 2.1 % (0.0-1.0); %Eosinophils 4.3 % (0.0-10.0); %Lymphocytes 5.2 % (21.0-51.0); %Monocytes 2.8 % (0.0-10.0); %Neutrophils 85.7 % (42.0-75.0); Hemoglobin 8.9 g/dL (12.0-16.0); Mean Corpuscular HGB CONC 32.8 g/dL (32.0-36.0); Mean Corpuscular Hemoglobin 34.8 pg (27.0-31.0); Mean Platelet Volume 9.9 fL (7.4-10.4); Platelet Count 471 thou/uL (130-400); RBC Distribution Width 27.3 % (11.5-14.5); Red Blood Cell (RBC) Count 2.55 mill/uL (4.20-5.40); White Blood Cell (WBC) Count 9.9 thou/uL (4.8-10.8)
[2018-03-11 19:12] LABS: Anisocytosis MODERATE=16-30 cells (100X) (0-5/hpf); MDiff Complete? YES; Macrocytosis SLIGHT = 6-15 cells (100X) (0-5/hpf); Ovalocytes SLIGHT = 2-5 cells (100X) (0-1/hpf); PLT Morphology Comment Appears Increased; Polychromasia SLIGHT = 2-3 cells (100X) (0-2/hpf); Schistocytes SLIGHT = 2-5 cells (100X) (0-1/hpf)
[2018-03-11 19:20] LABS: ALT (SGPT) 10 U/L (8-55); AST (SGOT) 11 U/L (5-34); Albumin 3.2 g/dL (3.4-4.8); Alkaline Phosphatase 64 U/L (40-150); Anion Gap 15 mmol/L (10-20); BUN (Urea Nitrogen) 12 mg/dL (9.8-20.1); Bilirubin, Total 0.6 mg/dL (0.2-1.2); Calc. Creatinine Clearance 0 mL/min (70-130); Calcium 8.3 mg/dL (7.8-10.44); Carbon Dioxide 25 mmol/L (23-31); Chloride 100 mmol/L (98-107); Estimated GFR-MDRD Greater than 90; Globulin 2.6 g/dL (2.4-3.5); Glucose 168 mg/dL (83-110); Potassium 3.5 mmol/L (3.5-5.1); Protein, Total 5.8 g/dL (6.0-8.3); Sodium 136 mmol/L (136-145)
[2018-03-11] MEDS ORDERED: Loperamide HCl 2 MG CAP ONE (21:00)
[2018-03-11] MEDS ORDERED: Pyridostigmine Bromide IR 60 MG TAB PO SCH (21:15)
== END 2018-03-11 22:15 | disposition home or self-care (01) ==
LOC: ERS 17:52
DX: R19.7 Diarrhea, unspecified (principal); R11.2 Nausea with vomiting, unspecified; T48.1X5A Adverse effect of skeletal muscle relaxants [neuromuscular blocking agents], initial encounter; D64.9 Anemia, unspecified; M19.90 Unspecified osteoarthritis, unspecified site; E03.9 Hypothyroidism, unspecified; Z79.899 Other long term (current) drug therapy; Z79.82 Long term (current) use of aspirin
CPT/HCPCS: 36415; 96360; 96361